=== PATIENT | female | born 1940 | race Caucasian/White ===

== ENCOUNTER 2019-03-14 08:15 | Emergency (ER) | payer OTHER ==
--- NOTE | 2019-03-14 08:43 | EDPHYS ---
Physician Documentation [facility] Name: Salome Keating Age: 78 yrs Sex: Female : 1940 Arrival Date: 03/14/2019 Time: 08:19 Bed 19 Private MD: Jadon Gilbert C ED Physician Av Stanley HPI: 03/14 10:30 This 78 yrs old Female presents to ER via Ambulatory with complaints of Rash. kdr 10:30 The patient's rash thought to be caused by Dermatitis Apparent fungal infection to the kdr intra panus area on her abdomen. The rash is located on the right lower quadrant and left lower quadrant. The rash can be described as erythematous, macular, moist. Onset: The symptoms/episode began/occurred gradually, 2 week(s) ago. Associated signs and symptoms: Pertinent positives: None. burning sensation, Pain Pertinent negatives:. Severity of symptoms: At their worst the symptoms were mild in the emergency department the symptoms are unchanged. Onset: The symptoms/episode began/occurred gradually, 2 week(s) ago. Treatment given at home: Benadryl. Treatment given at home: OTC lotion/cream. The symptoms do not radiate. Associated signs and symptoms: none. The symptoms are described as burning, vague. Modifying factors: The symptoms are alleviated by nothing, the symptoms are aggravated by movement, touching the area. Severity of pain: At its worst the pain was mild moderate just prior to arrival, in the emergency department the pain. The patient has not experienced similar symptoms in the past. The patient has been recently seen by a physician: the patient's primary care provider, Dr. Gilbert. The patient had been given Nystatin by Dr. Gilbert but continues to get worse. Historical: - Allergies: 08:34 No Known Allergies; sv - PMHx: 08:34 Atrial Fib; Hypertension; CHF; sv - PSHx: 08:34 Appendectomy; Cholecystectomy; Hysterectomy; Knee surgery; thyroid; pancreas partly sv removed; - Immunization history:: Adult Immunizations up to date, Flu vaccine is up to date. - Social history:: Smoking status: Patient/guardian denies using tobacco, Patient/guardian denies using alcohol. - Ebola Screening: : No symptoms or risks identified at this time. ROS: 10:30 Constitutional: Negative for fever, chills, and weight loss. kdr 10:30 Skin: Positive for discoloration, erythema. 10:30 Neuro: Positive for Negative for altered mental status, dizziness, gait disturbance, headache, hearing loss. Exam: 10:30 Skin: rash a moderate rash is noted, rash can be described as erythematous, excoriated, kdr macular, Fungal rash. 10:39 Constitutional: This is a well developed, well nourished patient who is awake, alert, kdr and in no acute distress. Vital Signs: 08:25 BP 120 / 81; Pulse 78; Resp 20; Temp 98.6; Pulse Ox 97% ; Weight 86.18 kg; Height 5 ft. sv 7 in. (170.18 cm); Pain 10/10; 08:25 Body Mass Index 29.76 (86.18 kg, 170.18 cm) sv MDM: 08:43 Patient medically screened. kdr 10:30 Data reviewed: vital signs, nurses notes. Counseling: I had a detailed discussion with kdr the patient and/or guardian regarding: the historical points, exam findings, and any diagnostic results supporting the discharge/admit diagnosis, the need for outpatient follow up. Administered Medications: No medications were administered Disposition: 03/14/19 08:43 Discharged to Home. Impression: Candidiasis. - Condition is Stable. - Discharge Instructions: Skin Yeast Infection. - Prescriptions for clotrimazole- betamethasone 1-0.05 % Topical lotion - apply 1 application by TOPICAL route 2 times per day for 14 days; 1 tube. - Medication Reconciliation Form, Thank You Letter form. - Follow up: Jadon Gilbert MD; When: 1 - 2 days; Reason: If symptoms return, Further diagnostic work-up, Recheck today's complaints, Continuance of care, Re-evaluation by your physician. - Problem is an ongoing problem. - Symptoms are unchanged. - Notes: Keep the area clean and dry. Signatures: Adelaida Patel RN RN Av Stanley MD MD kdr Corrections: (The following items were deleted from the chart) 09:14 08:43 03/14/2019 08:43 Discharged to Home. Impression: Candidiasis. Condition is sv Stable. Forms are Medication Reconciliation Form, Thank You Letter, Antibiotic Education, Prescription Opioid Use. Follow up: Jadon Gilbert; When: 1 - 2 days; Reason: If symptoms return, Further diagnostic work-up, Recheck today's complaints, Continuance of care, Re-evaluation by your physician. Problem is an ongoing problem. Symptoms are unchanged. kdr
--- NOTE | 2019-03-14 08:43 | ER ---
Nurse's Notes [facility] Name: Salome Keating Age: 78 yrs Sex: Female : 1940 Arrival Date: 03/14/2019 Time: 08:19 Bed 19 Private MD: Jadon Gilbert C Diagnosis: Candidiasis Presentation: 03/14 08:25 Presenting complaint: Patient states: rash to the lower abd fold x 2 weeks, has seen Dr crispin Gilbert and placed on Nystatin but has had no relief. Transition of care: patient was not received from another setting of care. Onset of symptoms was February 2019. Risk Assessment: Do you want to hurt yourself or someone else? Patient reports no desire to harm self or others. Initial Sepsis Screen: Does the patient meet any 2 criteria? No. Patient's initial sepsis screen is negative. Does the patient have a suspected source of infection? No. Patient's initial sepsis screen is negative. Care prior to arrival: Medication(s) given: Nystatin. 08:25 Method Of Arrival: Ambulatory sv 08:25 Acuity: JOLENE 4 sv Triage Assessment: 08:25 General: Appears in no apparent distress. uncomfortable, well developed, Behavior is sv cooperative, appropriate for age. Pain: Complains of pain in suprapubic area Pain currently is 10 out of 10 on a pain scale. Quality of pain is described as burning, itching Pain began 2 weeks ago Is continuous. Neuro: Level of Consciousness is awake, alert, obeys commands, Oriented to person, place, time, situation, Moves all extremities. Full function. Respiratory: Respiratory effort is even, unlabored, Respiratory pattern is regular, symmetrical. Derm: Skin is pink, warm \T\ dry. Rash noted that is itchy, red, on suprapubic area. Musculoskeletal: Range of motion: intact in all extremities. Historical: - Allergies: 08:34 No Known Allergies; sv - PMHx: 08:34 Atrial Fib; Hypertension; CHF; sv - PSHx: 08:34 Appendectomy; Cholecystectomy; Hysterectomy; Knee surgery; thyroid; pancreas partly sv removed; - Immunization history:: Adult Immunizations up to date, Flu vaccine is up to date. - Social history:: Smoking status: Patient/guardian denies using tobacco, Patient/guardian denies using alcohol. - Ebola Screening: : No symptoms or risks identified at this time. Screenin:37 Abuse screen: Denies threats or abuse. Denies injuries from another. Nutritional sv screening: No deficits noted. Tuberculosis screening: No symptoms or risk factors identified. Fall Risk None identified. Assessment: 08:37 Reassessment: Patient appears in no apparent distress at this time. No changes from sv previously documented assessment. 09:00 Reassessment: Patient appears in no apparent distress at this time. No changes from sv previously documented assessment. Patient and/or family updated on plan of care and expected duration. Pain level reassessed. Patient is alert, oriented x 3, equal unlabored respirations, skin warm/dry/pink. Vital Signs: 08:25 BP 120 / 81; Pulse 78; Resp 20; Temp 98.6; Pulse Ox 97% ; Weight 86.18 kg; Height 5 ft. sv 7 in. (170.18 cm); Pain 10/10; 08:25 Body Mass Index 29.76 (86.18 kg, 170.18 cm) sv ED Course: 08:19 Patient arrived in ED. mr 08:19 Jadon Gilbert MD is Private Physician. mr 08:29 Av Stanley MD is Attending Physician. kdr 08:31 Adelaida Patel RN is Primary Nurse. sv 08:33 Triage completed. sv 08:35 Arm band placed on. sv 08:37 Patient has correct armband on for positive identification. Bed in low position. Call sv light in reach. Door closed. Head of bed elevated. 08:38 ED physician to see patient. sv 08:41 Jadon Gilbert MD is Referral Physician. kdr 09:00 No provider procedures requiring assistance completed. Patient did not have IV access sv during this emergency room visit. Administered Medications: No medications were administered Outcome: 08:43 Discharge ordered by . kdr 09:00 Discharged to home ambulatory. sv 09:00 Condition: stable 09:00 Discharge instructions given to patient, Instructed on discharge instructions, follow up and referral plans. medication usage, wound care, Demonstrated understanding of instructions, follow-up care, medications, wound care, Prescriptions given X 1. 09:00 Patient left the ED. sv Signatures: Adelaida Patel RN RN sv Av Stanley MD MD [facility] Danyell Baumann mr Corrections: (The following items were deleted from the chart) 09:14 09:14 Patient left the ED. sv sv
== END 2019-03-14 09:14 | disposition home or self-care (01) ==
LOC: ER 08:15
DX: B37.9 Candidiasis, unspecified (principal); I10 Essential (primary) hypertension
CPT/HCPCS: 99282

== ENCOUNTER 2019-04-25 10:01 | Emergency (ER) | payer OTHER ==
[2019-04-25 10:55] LABS: Absolute Lymphocytes (CBC) 1.8 K/uL (0.7-4.9); Basophils % 0.8 % (0-1.3); Eosinophils % 2.8 % (0-4.4); Hematocrit 36.8 % (36.0-45.0); Lymphocytes % 21.2 % (15.3-44.8); MPV 8.7 fL (7.6-11.3); Monocytes % 7.8 % (3.3-12.3)
[2019-04-25 11:15] LABS: Potassium 3.6 mmol/L (3.5-5.1)
--- NOTE | 2019-04-25 11:19 | ER ---
Nurse's Notes [facility] Name: Salome Keating Age: 78 yrs Sex: Female : 1940 Arrival Date: 04/25/2019 Time: 10:02 Bed 14 Private MD: Jadon Gilbert C Diagnosis: Edema, unspecified Presentation: 04/25 10:11 Presenting complaint: Patient states: I had swelling in my feet that started yesterday la1 and was very bad last night. I have arthritis but also have to take a fluid pill and have a abnormal heart rhythm . Transition of care: patient was not received from another setting of care. Onset of symptoms was April 25, 2019. Risk Assessment: Do you want to hurt yourself or someone else? Patient reports no desire to harm self or others. Initial Sepsis Screen: Does the patient meet any 2 criteria? No. Patient's initial sepsis screen is negative. Does the patient have a suspected source of infection? No. Patient's initial sepsis screen is negative. Care prior to arrival: None. 10:11 Method Of Arrival: Ambulatory la1 10:11 Acuity: JOLENE 3 la1 Triage Assessment: 11:35 General: Appears in no apparent distress. Behavior is calm, cooperative. Pain: ae4 Complains of pain in right foot and left foot. Historical: - Allergies: 10:10 No Known Allergies; la1 - PMHx: 10:10 Atrial Fib; CHF; Hypertension; Arthritis; la1 - Immunization history:: Adult Immunizations up to date. - Social history:: Smoking status: Patient/guardian denies using tobacco. - Ebola Screening: : No symptoms or risks identified at this time. - Family history:: not pertinent. - Hospitalizations: : No recent hospitalization is reported. Screenin:33 Abuse screen: Denies threats or abuse. Nutritional screening: No deficits noted. ae4 Tuberculosis screening: No symptoms or risk factors identified. Fall Risk No fall in past 12 months (0 pts). Secondary diagnosis (15 points) Moderate swelling to MARYBETH feet, ankles.. No IV (0 pts). Ambulatory Aid- None/Bed Rest/Nurse Assist (0 pts). Gait- Normal/Bed Rest/Wheelchair (0 pts) Mental Status- Oriented to own ability (0 pts). Vital Signs: 10:12 BP 156 / 67; Pulse 88; Resp 16; Temp 97.8; Pulse Ox 98% on R/A; Weight 83.46 kg; Height la1 5 ft. 7 in. (170.18 cm); 11:36 BP 129 / 65; Pulse 85; Resp 18; Pulse Ox 98% on R/A; ae4 10:12 Body Mass Index 28.82 (83.46 kg, 170.18 cm) la1 ED Course: 10:02 Patient arrived in ED. as 10:02 Jadon Gilbert MD is Private Physician. as 10:10 Arm band placed on right wrist. la1 10:12 Triage completed. la1 10:15 Bed in low position. Call light in reach. Side rails up X 1. Adult w/ patient. Pulse ox ae4 on. NIBP on. 10:19 Chaz Perez MD is Attending Physician. rn 10:30 Jung Shay, RN is Primary Nurse. ae4 10:49 Basic Metabolic Panel Sent. ae4 10:49 CBC with Diff Sent. ae4 10:49 Inserted 22 Gauge straight stick blood draw sent to lab. ae4 11:18 Jadon Gilbert MD is Referral Physician. rn 11:34 No provider procedures requiring assistance completed. Patient did not have IV access ae4 during this emergency room visit. Administered Medications: No medications were administered Outcome: 11:18 Discharge ordered by . rn 11:35 Discharged to home ambulatory, with friend. ae4 11:35 Condition: stable 11:35 Discharge instructions given to patient, Instructed on discharge instructions, follow up and referral plans. Demonstrated understanding of instructions. 11:36 Patient left the ED. ae4 Signatures: Flores Villar Roman, MD MD rn Attema, Lee, RN RN la1 Jung Shay, ARTUR RN ae4
--- NOTE | 2019-04-25 11:19 | EDPHYS ---
Physician Documentation [facility] Name: Salome Keating Age: 78 yrs Sex: Female : 1940 Arrival Date: 04/25/2019 Time: 10:02 Bed 14 Private MD: Jdaon Gilbert C ED Physician Chza Perez HPI: 04/25 10:34 This 78 yrs old Female presents to ER via Ambulatory with complaints of Feet rn Swelling, Foot Pain. 10:34 The patient presents with pain. The complaints affect the left foot, right foot. Onset: rn The symptoms/episode began/occurred at an unknown time. Modifying factors: The symptoms are alleviated by nothing, the symptoms are aggravated by nothing. Severity of symptoms: At their worst the symptoms were mild, in the emergency department the symptoms are unchanged. The patient has not experienced similar symptoms in the past. The patient has not recently seen a physician. Reports 1-2 days of foot swelling and pain, + chronic arthritis, + afib and takes diuretics, reports still present with leg elevation, No trauma, no fever, no rash, no pain elsewhere. No leg swelling proximally, only feet. . Historical: - Allergies: 10:10 No Known Allergies; la1 - PMHx: 10:10 Atrial Fib; CHF; Hypertension; Arthritis; la1 - Immunization history:: Adult Immunizations up to date. - Social history:: Smoking status: Patient/guardian denies using tobacco. - Ebola Screening: : No symptoms or risks identified at this time. - Family history:: not pertinent. - Hospitalizations: : No recent hospitalization is reported. ROS: 10:55 Constitutional: Negative for fever, chills, and weight loss, Eyes: Negative for injury, rn pain, redness, and discharge, Cardiovascular: Negative for chest pain, palpitations Respiratory: Negative for shortness of breath, cough, wheezing, and pleuritic chest pain, Abdomen/GI: Negative for abdominal pain, nausea, vomiting, diarrhea, and constipation, MS/Extremity: Negative for injury and deformity, Skin: Negative for injury, rash, and discoloration, Neuro: Negative for headache, weakness, numbness, tingling, and seizure. Exam: 10:55 Constitutional: This is a well developed, well nourished patient who is awake, alert, rn and in no acute distress. Head/Face: Normocephalic, atraumatic. ENT: MMM Respiratory: No increased work of breathing, no retractions or nasal flaring. Abdomen/GI: soft, non-tender Skin: Warm, dry with normal turgor. Normal color with no rashes, no lesions, and no evidence of cellulitis. MS/ Extremity: Pulses equal, no cyanosis. Neurovascular intact. Full, normal range of motion. Equal circumference. 1+ pitting edema bilateral feet. Neuro: Awake and alert, GCS 15, oriented to person, place, time, and situation. Cranial nerves II-XII grossly intact. Motor strength 5/5 in all extremities. Sensory grossly intact. Cerebellar exam normal. Vital Signs: 10:12 BP 156 / 67; Pulse 88; Resp 16; Temp 97.8; Pulse Ox 98% on R/A; Weight 83.46 kg; Height la1 5 ft. 7 in. (170.18 cm); 11:36 BP 129 / 65; Pulse 85; Resp 18; Pulse Ox 98% on R/A; ae4 10:12 Body Mass Index 28.82 (83.46 kg, 170.18 cm) la1 MDM: 10:19 Patient medically screened. rn 11:17 Differential diagnosis: arthritis, edema. 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 Counseling: I had a detailed discussion with the patient and/or guardian regarding: the historical points, exam findings, and any diagnostic results supporting the discharge/admit diagnosis, lab results, the need for outpatient follow up, to return to the emergency department if symptoms worsen or persist or if there are any questions or concerns that arise at home. Special discussion: I discussed with the patient/guardian in detail that at this point there is no indication for admission to the hospital. It is understood, however, that if the symptoms persist or worsen the patient needs to return immediately for re-evaluation. ED course: Recommend pcp f/u and doubling up her diuretic for 2-3 days. Kidney function normal, no sign of infection, no signs of vascular compromise. . 04/25 10:28 Order name: CBC with Diff; Complete Time: 11:17 rn 04/25 10:28 Order name: Basic Metabolic Panel; Complete Time: : rn Administered Medications: No medications were administered Disposition: 04/25/19 11:18 Discharged to Home. Impression: Edema, unspecified. - Condition is Stable. - Discharge Instructions: Peripheral Edema. - Medication Reconciliation Form, Thank You Letter, Antibiotic Education, Prescription Opioid Use form. - Follow up: Jadon Gilbert MD; When: 1 week; Reason: Recheck today's complaints, Re-evaluation by your physician. - Problem is new. - Symptoms have improved. Signatures: Dispatcher [employer] EDMO Chaz Perez MD MD rn Attema, Lee, RN RN la1 Jung Shay RN RN ae4 Corrections: (The following items were deleted from the chart) 10:29 10:28 IV Saline Lock ordered. rn rn 11:36 11:18 04/25/2019 11:18 Discharged to Home. Impression: Edema, unspecified. Condition is ae4 Stable. Forms are Medication Reconciliation Form, Thank You Letter, Antibiotic Education, Prescription Opioid Use. Follow up: Jadon Gilbert; When: 1 week; Reason: Recheck today's complaints, Re-evaluation by your physician. Problem is new. Symptoms have improved. rn
== END 2019-04-25 11:36 | disposition home or self-care (01) ==
LOC: ER 10:01
DX: R60.9 Edema, unspecified (principal)
CPT/HCPCS: 36415; 80048; 85025; 99283

== ENCOUNTER 2022-04-24 11:51 | Emergency (ER) | payer OTHER ==
--- NOTE | 2022-04-24 13:10 | RAD REPORT ---
EXAM DESCRIPTION: RAD - Chest Single View - 04/24/2022 12:28 pm CLINICAL HISTORY: CHEST PAIN COMPARISON: Two view chest 08/25/2015 TECHNIQUE: AP portable chest image was obtained 04/24/2022 12:28 pm . FINDINGS: No focal lung parenchymal process identified. Mildly prominent chronic interstitial lung p attern matches comparison. Heart and vasculature are normal. No measurable pleural effusion and no pn eumothorax. No acute bony abnormality seen. No acute aortic findings suspected. IMPRESSION: No acute cardiopulmonary process.
[2022-04-24 14:37] LABS: Absolute Lymphocytes (CBC) 1.6 K/uL (0.7-4.9); Hematocrit 36.1 % (36.0-45.0); Lymphocytes % 31.9 % (15.3-44.8); MCV 89.9 fL (80-100); MPV 8.3 fL (7.6-11.3); RBC Red Blood Cell Count 4.02 M/uL (3.86-4.86)
[2022-04-24 14:42] LABS: Urine Blood Negative (Negative); Urine Glucose Negative (Negative); Urine Protein Negative (Negative); Urine Specific Gravity 1.015 (1.005-1.030); Urine pH 5.5 (5.0-7.0)
[2022-04-24 14:49] LABS: Troponin High Sensitivity 5.9 pg/mL (<58.9)
[2022-04-24 14:57] LABS: Magnesium 2.5 mg/dL (1.8-2.4)
[2022-04-24 15:13] LABS: Urine Bacteria <20 /HPF (<20); Urine RBC <5 /HPF (NONE SEEN)
--- NOTE | 2022-04-24 15:28 | EDPHYS ---
Physician Documentation [facility] Name: Salome Keating Age: 81 yrs Sex: Female : 1940 Arrival Date: 04/24/2022 Time: 11:54 Bed 6 Private MD: Jadon Gilbert C ED Physician Chaz Perez HPI: 04/24 13:27 This 81 yrs old Female presents to ER via Ambulatory with complaints of Chest Pain. cp 13:27 The patient or guardian reports chest pain that is located primarily in the anterior cp chest wall, left. 13:27 Onset: yesterday. The pain radiates to the left shoulder, left jaw, the left scapula. cp Associated signs and symptoms: Pertinent negatives: abdominal pain, cough, diaphoresis, lower extremity pain, lower extremity swelling, palpitations, shortness of breath, syncope, vomiting. The chest pain is described as aching. Duration: The patient or guardian reports multiple episodes, that are intermittent. Modifying factors: the symptoms are aggravated by nothing. Severity of pain: in the emergency department the pain has improved moderately. . Historical: - Allergies: 12:10 No Known Allergies; ap3 - PMHx: 12:10 Arthritis; Atrial Fib; CHF; Hypertension; ap3 - Immunization history:: Client reports receiving the 2nd dose of the Covid vaccine. - Social history:: Smoking status: Patient denies any tobacco usage or history of. ROS: 13:30 Constitutional: Negative for body aches, chills, fever, poor PO intake. cp 13:30 Cardiovascular: Positive for chest pain, edema, Negative for palpitations. cp 13:30 Respiratory: Negative for cough, shortness of breath, wheezing. 13:30 Eyes: Negative for injury, pain, redness, and discharge. cp 13:30 Neck: Negative for stiffness. 13:30 Abdomen/GI: Negative for abdominal pain, nausea, vomiting, and diarrhea. 13:30 Back: Positive for radiated pain. 13:30 Skin: Negative for cellulitis, rash. 13:30 Neuro: Negative for altered mental status, dizziness, headache, weakness. 13:30 All other systems are negative. Exam: 12:25 ECG was reviewed by the Attending Physician. cp 13:35 Constitutional: The patient appears in no acute distress, alert, awake, comfortable, cp non-diaphoretic, non-toxic, well developed, well nourished. 13:35 Head/Face: Normocephalic, atraumatic. cp 13:35 Eyes: Periorbital structures: appear normal, Conjunctiva: normal, no exudate, no injection, Sclera: no appreciated abnormality, Lids and lashes: appear normal, bilaterally. 13:35 ENT: External ear(s): are unremarkable, Nose: is normal, Mouth: Lips: moist, Oral mucosa: pink and intact, moist, Posterior pharynx: is normal, airway is patent, no erythema, no exudate. 13:35 Neck: ROM/movement: is normal, is supple, without pain, no range of motions limitations. 13:35 Chest/axilla: Inspection: normal. 13:35 Cardiovascular: Rate: bradycardic, Rhythm: regular, Edema: ankle edema, that is mild, JVD: is not appreciated. 13:35 Respiratory: the patient does not display signs of respiratory distress, Respirations: normal, no use of accessory muscles, no retractions, labored breathing, is not present, Breath sounds: are clear throughout, no decreased breath sounds, no stridor, no wheezing. 13:35 Abdomen/GI: Inspection: abdomen appears normal, Palpation: abdomen is soft and non-tender, in all quadrants. 13:35 Back: pain, is absent, ROM is normal. 13:35 Neuro: Orientation: to person, place \T\ time. Mentation: is normal, Motor: moves all fours, general weakness with no focal deficits, Sensation: is normal, Gait: is steady. Vital Signs: 12:07 BP 129 / 61; Pulse 60; Temp 97.7; Pulse Ox 99% ; Weight 74.84 kg; Height 5 ft. 7 in. ap3 (170.18 cm); 14:42 BP 166 / 66; Pulse 48; Pulse Ox 100% on R/A; Pain 0/10; tp1 15:38 BP 148 / 50; Pulse 67; Resp 16; Pulse Ox 100% on R/A; Pain 0/10; tp1 12:07 Body Mass Index 25.84 (74.84 kg, 170.18 cm) ap3 MDM: 12:12 Patient medically screened. [facility] 13:00 Differential diagnosis: acute myocardial infarction, acute pericarditis, pericarditis, cp pneumonia, pneumothorax, pulmonary embolus, stable angina, thoracic aortic disection, unstable angina. 15:25 Data reviewed: vital signs, nurses notes, lab test result(s), EKG, radiologic studies, cp plain films. Test interpretation: by ED physician or midlevel provider: ECG, plain radiologic studies. 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 Refusal of service: The patient/guardian displays adequate decision making capability and despite a detailed discussion of alternatives, benefits, risks, and consequences refuses: Admission to the hospital for further work-up and treatment. 04/24 12:12 Order name: Basic Metabolic Panel; Complete Time: 14:56 [facility] 04/24 14:56 Interpretation: Normal except: GLUC 118; BUN 44; CRE 2.01; GFR 24. 04/24 12:12 Order name: CBC with Diff; Complete Time: 14:56 [facility] 04/24 14:59 Interpretation: Normal except: HGB 11.9; MCV 89.9; EOSINOPHIL % 7.0; BASO% 1.4. 04/24 12:12 Order name: Troponin HS; Complete Time: 14:56 [facility] 04/24 13:27 Order name: BNP; Complete Time: 15:05 04/24 15:05 Interpretation: Abnormal: NT PRO-BNP 897. 04/24 13:27 Order name: Magnesium; Complete Time: 15:05 04/24 15:05 Interpretation: MG 2.5; Reviewed. 04/24 13:27 Order name: Urine Microscopic Only; Complete Time: 15:16 04/24 15:16 Interpretation: Normal except: SQEPI 5-10. 04/24 12:12 Order name: XRAY Chest (1 view); Complete Time: 14:56 [facility] 04/24 15:06 Interpretation: Report review. 04/24 12:12 Order name: EKG; Complete Time: 12:13 [facility] 04/24 12:12 Order name: Cardiac monitoring; Complete Time: 14:42 [facility] 04/24 12:12 Order name: EKG - Nurse/Tech; Complete Time: 14:28 [facility] 04/24 12:12 Order name: IV Saline Lock; Complete Time: 14:25 [facility] 04/24 12:12 Order name: Labs collected and sent; Complete Time: 14:25 [facility] 04/24 12:12 Order name: O2 Per Protocol; Complete Time: 14:42 [facility] 04/24 14:43 Order name: Urine Dipstick-Ancillary; Complete Time: 14:56 [facility] 04/24 12:12 Order name: O2 Sat Monitoring; Complete Time: 14:25 [facility] 04/24 13:27 Order name: Urine Dipstick-Ancillary (obtain specimen); Complete Time: 14:42 cp EC:25 Rate is 50 beats/min. Rhythm is regular. HI interval is normal. QRS interval is normal. cp QT interval is normal. T waves are Inverted in lead aVR. Interpreted by me. Reviewed by me. Administered Medications: No medications were administered Disposition: 04/25 07:31 Co-signature as Attending Physician, Chaz Perez MD. rn Disposition Summary: 04/24/22 15:27 Discharge Ordered Location: Home cp Problem: new cp Symptoms: are unchanged cp Condition: Stable cp Diagnosis - Chest pain, unspecified cp - Other acute kidney failure cp Followup: cp - With: Jadon Gilbert MD - When: 1 - 2 days - Reason: Recheck today's complaints Followup: cp - With: Luis Díaz MD - When: 1 - 2 days - Reason: chest pain Discharge Instructions: - Discharge Summary Sheet cp - Nonspecific Chest Pain, Adult cp - Acute Kidney Injury, Adult cp - Aspirin and Your Heart cp Forms: - Medication Reconciliation Form cp - Thank You Letter cp - Antibiotic Education cp - Prescription Opioid Use cp Signatures: Dispatcher [employer] EDBlack Prabhakar PA PA jmm Nieto, Roman, MD MD rn Page, Corey, PA PA cp Prokisch, Amanda, ARTUR RN ap3
--- NOTE | 2022-04-24 15:28 | ER ---
Nurse's Notes [facility] Name: Salome Keating Age: 81 yrs Sex: Female : 1940 Arrival Date: 04/24/2022 Time: 11:54 Bed 6 Private MD: Jadon Gilbert C Diagnosis: Chest pain, unspecified;Other acute kidney failure Presentation: 04/24 12:07 Chief complaint: Patient states: she has been having chest pain off and on since last ap3 night. patient states the pain is also in her neck and shoulder area as well. Coronavirus screen: At this time, the client does not indicate any symptoms associated with coronavirus-19. Ebola Screen: No symptoms or risks identified at this time. Initial Sepsis Screen: Does the patient meet any 2 criteria? No. Patient's initial sepsis screen is negative. Does the patient have a suspected source of infection? No. Patient's initial sepsis screen is negative. Risk Assessment: Do you want to hurt yourself or someone else? Patient reports no desire to harm self or others. Onset of symptoms was April 23, 2022. 12:07 Method Of Arrival: Ambulatory ap3 12:12 Acuity: JOLENE 3 ap3 Triage Assessment: 12:11 General: Appears uncomfortable, Behavior is calm, cooperative. Pain: Complains of pain ap3 in chest Pain radiates to neck and shoulder Pain began gradually, 1 day ago. Neuro: Level of Consciousness is awake, alert, obeys commands, Oriented to person, place, time, situation, Appropriate for age Gait is steady, Speech is normal. Cardiovascular: Reports chest pain. Respiratory: Airway is patent Respiratory effort is even, unlabored, Respiratory pattern is regular, symmetrical. Historical: - Allergies: 12:10 No Known Allergies; ap3 - PMHx: 12:10 Arthritis; Atrial Fib; CHF; Hypertension; ap3 - Immunization history:: Client reports receiving the 2nd dose of the Covid vaccine. - Social history:: Smoking status: Patient denies any tobacco usage or history of. Screenin:12 Abuse screen: Denies threats or abuse. Nutritional screening: No deficits noted. ap3 Tuberculosis screening: No symptoms or risk factors identified. 14:40 Fall Risk IV access (20 points). Ambulatory Aid- Crutches/Cane/Walker (15 pts). Gait- tp1 Weak (10 pts.). Mental Status- Oriented to own ability (0 pts). Total Fontenot Fall Scale indicates High Risk Score (45 or more points). Fall prevention measures have been instituted. Side Rails Up X 2 Placed Close to Nursing Station Frequent Obs/Assessments Occuring Family Present and informed to notify staff if the need to leave the bedside As available patient and family educated on Fall Prevention Program and Strategies. Assessment: 14:04 General: Appears in no apparent distress. comfortable, Behavior is calm, cooperative. tp1 Pain: Complains of pain in anterior aspect of left upper chest and mid-sternal area Pain radiates to right trapezius and right scapular area Pain currently is 0 out of 10 on a pain scale. at worst was 5 out of 10 on a pain scale. Quality of pain is described as aching, Pain began 1 day ago. Neuro: Level of Consciousness is awake, alert, Oriented to person, place, time, situation. Cardiovascular: Heart tones S1 S2 present Patient's skin is warm and dry. Respiratory: Airway is patent Respiratory effort is even, unlabored, Respiratory pattern is regular. GI: No signs and/or symptoms were reported involving the gastrointestinal system. : No signs and/or symptoms were reported regarding the genitourinary system. EENT: No signs and/or symptoms were reported regarding the EENT system. Derm: Skin is intact, Skin is pink, warm \T\ dry. Musculoskeletal: Circulation, motion, and sensation intact. 15:30 Reassessment: Patient appears in no apparent distress at this time. No changes from tp1 previously documented assessment. Patient and/or family updated on plan of care and expected duration. Pain level reassessed. Patient is alert, oriented x 3, equal unlabored respirations, skin warm/dry/pink. Patient denies pain at this time. Neuro:. Cardiovascular: Patient's skin is warm and dry. Respiratory: Airway is patent Respiratory effort is even, unlabored, Respiratory pattern is regular. Vital Signs: 12:07 BP 129 / 61; Pulse 60; Temp 97.7; Pulse Ox 99% ; Weight 74.84 kg; Height 5 ft. 7 in. ap3 (170.18 cm); 14:42 BP 166 / 66; Pulse 48; Pulse Ox 100% on R/A; Pain 0/10; tp1 15:38 BP 148 / 50; Pulse 67; Resp 16; Pulse Ox 100% on R/A; Pain 0/10; tp1 12:07 Body Mass Index 25.84 (74.84 kg, 170.18 cm) ap3 ED Course: 11:54 Patient arrived in ED. mr 11:54 Jadon Gilbert MD is Private Physician. mr 12:12 Triage completed. ap3 12:12 Patient maintains SpO2 saturation greater than 95% on room air. ap3 12:12 Arm band placed on left wrist. ap3 12:22 EKG done, by ED staff. tp1 12:29 XRAY Chest (1 view) In Process Unspecified. EDMS 13:15 Maurisio Lantigua PA is PHCP. cp 13:15 Chaz Perez MD is Attending Physician. cp 14:13 Inserted saline lock: 20 gauge in right forearm, using aseptic technique. Blood tp1 collected. 14:30 Urine collected: clean catch specimen, clear. tp1 14:46 Patient has correct armband on for positive identification. Bed in low position. Call tp1 light in reach. Side rails up X2. Adult w/ patient. Client placed on continuous cardiac and pulse oximetry monitoring. NIBP monitoring applied. Warm blanket given. 15:26 Jadon Gilbert MD is Referral Physician. cp 15:26 Luis Díaz MD is Referral Physician. cp 15:52 No provider procedures requiring assistance completed. IV discontinued, intact, tp1 bleeding controlled, No redness/swelling at site. Pressure dressing applied. 15:53 Taylor Clark is Primary Nurse. tp1 Administered Medications: No medications were administered Medication: 15:54 VIS not applicable for this client. tp1 Outcome: 14:40 Discharged to home via wheelchair, with family. tp1 14:40 Condition: good 14:40 Discharge instructions given to patient, family, Instructed on discharge instructions, follow up and referral plans. Demonstrated understanding of instructions, follow-up care. 15:27 Discharge ordered by MD. cp 15:53 Patient left the ED. jl7 Signatures: Dispatcher [employer] EDMS Danyell Baumann Maurisio Lantigua PA PA cp Leal, Jahala, RN RN jl7 Aylin Lopez RN RN ap3 Taylor Clark tp1
[2022-04-24 16:00] VITALS: TEMP 97.7
[2022-04-24 16:01] VITALS: O2SAT 100
[2022-04-24 16:03] VITALS: BP 148/50
--- NOTE | 2022-04-25 08:23 | EKG ---
Test Date: 2022-04-24 Test Time: 12:22:14 Chief Clerk Shelter: ALP MEASUREMENT RESULTS: Intervals: Rate: 50 MS: 190 QRSD: 76 QT: 474 QTc: 432 [place]: P: 73 MS: 190 QRS: 11 T: 46 INTERPRETIVE STATEMENTS: Sinus bradycardia Low voltage QRS Borderline ECG Compared to ECG 06/06/2009 06:31:22 Sinus rhythm no longer present Electronically Signed On 04-25-22 08:18:35 CDT by Luis Díaz
== END 2022-04-24 15:53 | disposition home or self-care (01) ==
LOC: ER 11:51
DX: R07.9 Chest pain, unspecified (principal); N17.8 Other acute kidney failure; I10 Essential (primary) hypertension; I48.91 Unspecified atrial fibrillation; I50.9 Heart failure, unspecified
CPT/HCPCS: 36415; 71045; 80048; 81003; 81015; 83735; 83880; 84484; 85025; 93005

== ENCOUNTER 2022-08-09 10:45 | Emergency (ER) | payer OTHER ==
--- OUTSIDE RECORDS SUMMARY | 2022-08-09 10:49 | XMS REPORT | Continuity of Care Document ---
:1940 Author Organization [facility] t Address [facility] [address] [place] [address] Care Team Providers Name Role Phone Pcp, Patient Does Not Have A Primary Care Physician +[id number] Therapy, [facility]fusion Attending Clinician Unavailable Judd Cartagena MD Attending Clinician JUDD CARTAGENA Attending Clinician Unavailable Provider, [facility] Attending Clinician Unavailable Doctor Unassigned, [place] Attending Clinician Unavailable Only, Ang Db Test Attending Clinician Unavailable Marjorie Leal PA-C Attending Clinician Payers Payer Name Policy Type Policy Number Effective Date Expiration Date S ource Problems This patient has no known problems. Allergies, Adverse Reactions, Alerts Allergy Allergy Status Severity Reaction(s) Onset Inactive Treating Comm ents Source Name Type Date Date Clinician NO KNOWN Drug Active Univers ALLERGIE Class ity of S [facility] Social History Social Habit Start Date Stop Date Quantity Comments Source Exposure to Yes [facility] SARS-CoV-2 (event) Medica l Branch Sex Assigned At [birth year] [facility] 00:00:00 00:00:00 [facility] Smoking Status Start Date Stop Date Source Unknown if ever smoked [facility] Medications Ordered Filled Start Stop Current Ordering Indication Dosage Frequency Signature Comments Components Source Medication Medication Date Date Medication? Clinician (SIG) Name Name sotrovimab 2021- No [id number] 500mg 500 mg, IV Univers (XEVUDY) 11-01 Infusion, ity o f 500 mg in 23:30: 22:50 [facility] [place] NaCl 0.9% 00 :00 Administer Medi miguelito (NS) 50 mL over 30 Branch MINI-BAG Minutes, On Sun11/01/21 at 1730, For [address] able 24 hours refrigerat ed or 6 hours at room temperatur e including transporta tion and infusion time.
Vital Signs Vital Name Observation Time Observation Value Comments Source Systolic blood 2021-11-01 23:47:00 174 mm[Hg] Univer sity of pressure [facility] Diastolic blood 2021-11-01 23:47:00 57 mm[Hg] [facility] 2021-11-01 23:47:00 60 /min [facility] Body temperature 2021-11-01 23:47:00 37.11 [facility] rate 2021-11-01 23:47:00 20 /min [facility] Oxygen saturation in 2021-11-01 23:47:00 96 /min [facility] Arterial blood by [facility] Pulse oximetry Branch Body height 2021-11-01 22:19:00 170.2 cm [facility] Body weight 2021-11-01 22:19:00 74.844 kg [facility] BMI 2021-11-01 22:19:00 25.84 kg/m2 [facility] Procedures Procedure Date / Time Performing Clinician Source Performed IMMTRAC2 CONSENT 2021-11-01 06:01:00 Doctor Unassigned, [facility] [place] [facility] LAB ONLY COVID 2021-10-30 18:42:00 Mel Marjorie [place] o [facility] COVID-19 (MOLECULAR 2021-10-30 18:42:00 Marjorie Leal [facility] TESTING [facility] NUCLEIC ACID AMPLIFICATION) Encounters Start End Encounter Admission Attending Care Care Encounter Source Date/Time Date/Time Type Type Clinicians Facility Department ID 2021-11-01 2021-11-01 Nurse Therapy, [facility] Infusion [facility] [id number] [facility] 16:00:00 17:00:00 Visit Judd Cartagena [id number] [id number] [id number] [facility] [address] Branch 2021-11-01 2021-11-01 Outpatient R CARTAGENA [facility] [id number] Univers 16:00:00 16:00:00 JUDD [facility] 2021-11-01 2021-11-01 Outpatient R CARTAGENA [facility] [id number] Univers 16:00:00 16:00:00 JUDD [facility] 2021-11-01 2021-11-01 Telephone Provider, [facility] [id number] Univers 00:00:00 00:00:00 Ang Urgent HEALTH [id number] ity of Care [place] [id number] [place] as ANNETTE?BLEA [id number] [address] MEDICAL OFFICE BUILDING 2021-11-01 2021-11-01 Orders Doctor JONG [id number] Univers 00:00:00 00:00:00 Only Unassigned, MINI [id number] ity of [place] [facility] [id number] [place] as [id number] [address] 2021-10-30 2021-10-30 Laboratory Only, Ang Db Test [facility] 1.2.8 40.114 [id number] Univers 12:45:00 13:29:20 Only Dominique Lealcy HEALTH [id number] ity of [place] [id number] [place] as ANNETTE?BLEA [id number] [address] MEDICAL OFFICE BUILDING Results This patient has no known results.
--- NOTE | 2022-08-09 13:01 | RAD REPORT ---
EXAM DESCRIPTION: RAD - Foot Left 3 View - 08/09/2022 12:43 pm CLINICAL HISTORY: PAINafter a fall COMPARISON: No comparisons FINDINGS: No fracture, dislocation or periosteal reaction. No acute or destructive bony process. IP joint space narrowing present with joint space narrowing at the first MTP joint as well. No erosiv e destructive bony process. Small plantar spur is present. No air or foreign body in the soft tissues. Arterial calcifications present. IMPRESSION: Left foot degenerative change as detailed. No fracture or other acute finding.
--- NOTE | 2022-08-09 13:02 | RAD REPORT ---
EXAM DESCRIPTION: RAD - Knee Left 3 View - 08/09/2022 12:43 pm CLINICAL HISTORY: PAIN COMPARISON: Knee Left 2 View dated 06/23/2019 FINDINGS: No fracture, dislocation or periosteal reaction.No joint effusion seen. Medial compartment narrowing present with small marginal spurs along the tibial plateau. There is spurring along the ti bial spine and intercondylar notch. Patella marginal spurs are present. Patella femoral joint space i s narrowed slightly. No soft tissue abnormality. IMPRESSION: Knee joint degenerative change as detailed. No acute bone or joint finding. Clinical concerns for internal derangement or occult bony injury could be further assessed with MR im aging.
--- NOTE | 2022-08-09 13:25 | ER ---
Nurse's Notes [facility] Name: Salome Keating Age: 82 yrs Sex: Female : 1940 Arrival Date: 08/09/2022 Time: 10:52 Bed 15 Private MD: Jadon Gilbert C Diagnosis: Fall on same level from slipping, tripping and stumbling without subsequent striking against object;Pain in left knee;Pain in left foot Presentation: 08/09 10:59 Chief complaint: Patient states: Fell Sunday night and reporting pain to left foot and jl7 left knee, does not know what made her fall. Coronavirus screen: At this time, the client does not indicate any symptoms associated with coronavirus-19. Ebola Screen: No symptoms or risks identified at this time. Initial Sepsis Screen: Does the patient meet any 2 criteria? No. Patient's initial sepsis screen is negative. Does the patient have a suspected source of infection? No. Patient's initial sepsis screen is negative. Risk Assessment: Do you want to hurt yourself or someone else? Patient reports no desire to harm self or others. Onset of symptoms was August 07, 2022. 10:59 Method Of Arrival: Ambulatory jl7 10:59 Acuity: JOLENE 3 jl7 Triage Assessment: 11:03 General: Appears in no apparent distress. uncomfortable, Behavior is calm, cooperative, jl7 appropriate for age. Pain: Complains of pain in left leg Pain currently is 6 out of 10 on a pain scale. Historical: - Allergies: 11:03 Sulfa (Sulfonamide Antibiotics); jl7 - PMHx: 11:03 Arthritis; Atrial Fib; CHF; Hypertension; jl7 - Immunization history:: Client reports receiving the 2nd dose of the Covid vaccine. - Social history:: Smoking status: Patient denies any tobacco usage or history of. Screenin:07 Abuse screen: Denies threats or abuse. Nutritional screening: No deficits noted. ap3 Tuberculosis screening: No symptoms or risk factors identified. Fall Risk Fall in past 12 months (25 points). Secondary diagnosis (15 points) impaired mobility, No IV (0 pts). Ambulatory Aid- None/Bed Rest/Nurse Assist (0 pts). Gait- Impaired (20 pts.). Mental Status- Oriented to own ability (0 pts). Total Fontenot Fall Scale indicates High Risk Score (45 or more points). Fall prevention measures have been instituted. Side Rails Up X 2 Placed Close to Nursing Station Frequent Obs/Assessments Occuring Family Present and informed to notify staff if the need to leave the bedside As available patient and family educated on Fall Prevention Program and Strategies. Assessment: 12:07 General: Appears in no apparent distress. Behavior is calm, cooperative. Pain: ap3 Complains of pain in left leg Pain began suddenly, 2-3 days ago. Neuro: Level of Consciousness is awake, alert, obeys commands, Oriented to person, place, time. Cardiovascular: Patient's skin is warm and dry. Respiratory: Airway is patent Respiratory effort is even, unlabored, Respiratory pattern is regular, symmetrical. Vital Signs: 10:59 BP 112 / 57; Pulse 86; Resp 15; Temp 98.2; Pulse Ox 100% ; Weight 72.57 kg; Height 5 jl7 ft. 7 in. (170.18 cm); Pain 6/10; 10:59 Body Mass Index 25.06 (72.57 kg, 170.18 cm) jl7 ED Course: 10:52 Patient arrived in ED. mr 10:52 Jadon Gilbert MD is Private Physician. mr 10:55 [facility]C [facility]. kb 10:55 Cornell Knight DO is Attending Physician. kb 11:03 Triage completed. jl7 11:03 Arm band placed on right wrist. jl7 11:18 Aylin Lopez, RN is Primary Nurse. ap3 12:08 Patient has correct armband on for positive identification. Bed in low position. Call ap3 light in reach. Side rails up X2. Adult w/ patient. Pulse ox on. NIBP on. Door closed. Noise minimized. 12:45 Foot Left 3 View XRAY In Process Unspecified. EDMS 12:45 Knee Left 3 View XRAY In Process Unspecified. EDMS 13:24 Jaodn Gilbert MD is Referral Physician. kb 13:36 No provider procedures requiring assistance completed. Patient did not have IV access ap3 during this emergency room visit. Administered Medications: No medications were administered Medication: 13:17 VIS not applicable for this client. ap3 Outcome: 13:24 Discharge ordered by . kb 13:36 Discharged to home via wheelchair, with friend. ap3 13:36 Condition: good 13:36 Discharge instructions given to patient, family, Instructed on discharge instructions, follow up and referral plans. Demonstrated understanding of instructions, follow-up care. 13:36 Patient left the ED. ap3 Signatures: Dispatcher [employer] EDAilyn Summers, DONNA YODER-Danyell Kahn mr SernaMercedes RN RN jl7 Aylin Lopez RN RN ap3
--- NOTE | 2022-08-09 13:26 | EDPHYS ---
Physician Documentation [facility] Name: Salome Keating Age: 82 yrs Sex: Female : 1940 Arrival Date: 08/09/2022 Time: 10:52 Bed 15 Private MD: Jadon Gilbert C ED Physician Cornell Knight HPI: 08/09 13:29 This 82 yrs old Female presents to ER via Ambulatory with complaints of Fall Injury. kb 13:29 Details of fall: The patient fell from an upright position, while walking. Onset: The kb symptoms/episode began/occurred 3 day(s) ago. Associated injuries: The patient sustained left foot and left knee, painful injury. Severity of symptoms: At their worst the symptoms were moderate, in the emergency department the symptoms are unchanged. The patient has not experienced similar symptoms in the past. The patient has not recently seen a physician. Pt reports she fell on Sunday when taking the trash out. Reports pain to left foot and knee. States she is able to walk with the walker. Historical: - Allergies: 11:03 Sulfa (Sulfonamide Antibiotics); jl7 - PMHx: 11:03 Arthritis; Atrial Fib; CHF; Hypertension; jl7 - Immunization history:: Client reports receiving the 2nd dose of the Covid vaccine. - Social history:: Smoking status: Patient denies any tobacco usage or history of. ROS: 13:27 Constitutional: Negative for fever, chills, and weight loss. kb 13:27 MS/extremity: Positive for pain, of the left foot and left knee. 13:27 All other systems are negative. Exam: 13:27 Constitutional: This is a well developed, well nourished patient who is awake, alert, kb and in no acute distress. Head/Face: Normocephalic, atraumatic. ENT: Moist Mucous membranes Cardiovascular: Regular rate and rhythm with a normal S1 and S2. No gallops, murmurs, or rubs. No pulse deficits. Respiratory: Respirations even and unlabored. No increased work of breathing. Talking in full sentences Abdomen/GI: Soft, non-tender. No distention Skin: Warm, dry with normal turgor. Normal color. Neuro: Awake and alert, GCS 15, oriented to person, place, time, and situation. Moves all extremities. Normal gait. Psych: Awake, alert, with orientation to person, place and time. Behavior, mood, and affect are within normal limits. 13:27 Musculoskeletal/extremity: Extremities: grossly normal except: noted in the left foot and left knee: pain, ROM: intact in all extremities, Circulation is intact in all extremities. Sensation intact. Weight bearing: can bear weight with assistance only, uses walker. Vital Signs: 10:59 BP 112 / 57; Pulse 86; Resp 15; Temp 98.2; Pulse Ox 100% ; Weight 72.57 kg; Height 5 jl7 ft. 7 in. (170.18 cm); Pain 6/10; 10:59 Body Mass Index 25.06 (72.57 kg, 170.18 cm) jl7 MDM: 11:02 Patient medically screened. kb 13:27 Data reviewed: vital signs, nurses notes. Data interpreted: Pulse oximetry: on room air kb is 100 %. Interpretation: normal. Counseling: I had a detailed discussion with the patient and/or guardian regarding: the historical points, exam findings, and any diagnostic results supporting the discharge/admit diagnosis, radiology results, the need for outpatient follow up, a family practitioner, to return to the emergency department if symptoms worsen or persist or if there are any questions or concerns that arise at home. 08/09 11:02 Order name: Foot Left 3 View XRAY; Complete Time: 13:05 kb 08/09 11:02 Order name: Knee Left 3 View XRAY; Complete Time: 13:05 kb Administered Medications: No medications were administered Disposition: 21:09 Co-signature as Attending Physician, Cornell FITCH was immediately available on-site ms3 in the Emergency Department for consultation in the care of the patient.. Disposition Summary: 08/09/22 13:24 Discharge Ordered Location: Home kb Condition: Stable kb Diagnosis - Fall on same level from slipping, tripping and stumbling without subsequent kb striking against object - Pain in left knee kb - Pain in left foot kb Followup: kb - With: Emergency Department - When: As needed - Reason: Worsening of condition Followup: kb - With: Jadon Gilbert MD - When: 2 - 3 days - Reason: Recheck today's complaints, Continuance of care, Re-evaluation by your physician Discharge Instructions: - Discharge Summary Sheet kb - Musculoskeletal Pain kb Forms: - Medication Reconciliation Form kb - Thank You Letter kb - Antibiotic Education kb - Prescription Opioid Use kb Signatures: Dispatcher [employer] Ailyn Miranda, SUDARSHANC PARESH-Mercedes Flores, RN RN jl7 Cornell Knight, DO ELI ms3
[2022-08-09 13:58] VITALS: BP 112/57; TEMP 98.2; O2SAT 100
== END 2022-08-09 13:36 | disposition home or self-care (01) ==
LOC: ER 10:45
DX: M25.562 Pain in left knee (principal); M79.672 Pain in left foot; W01.0XXA Fall on same level from slipping, tripping and stumbling without subsequent striking against object, initial encounter; I10 Essential (primary) hypertension; Z88.2 Allergy status to sulfonamides
CPT/HCPCS: 99283

== ENCOUNTER 2022-09-03 19:20 | Observation (INO) | payer OTHER ==
--- OUTSIDE RECORDS SUMMARY | 2022-09-03 19:23 | XMS REPORT | Continuity of Care Document ---
:1940 Author Organization [facility] t Address [facility] [address] [place] [address] Care Team Providers Name Role Phone Pcp, Patient Does Not Have A Primary Care Physician +[id number] Therapy, Adc Covid Infusion Attending Clinician Unavailable Judd Cartagena MD Attending Clinician JUDD CARTAGENA Attending Clinician Unavailable Provider, [facility] Attending Clinician Unavailable Doctor Unassigned, Vevay Attending Clinician Unavailable Only, Ang Db Test [...] Active [facility] Class ity of [facility] Social History Social Habit Start Date Stop Date Quantity Comments Source Exposure to Yes [facility] SARS-CoV-2 (event) Medica l Branch Sex Assigned At [birth year] [facility] 00:00:00 00:00:00 [facility] Smoking Status Start Date Stop Date Source Unknown if ever smoked [facility] Medications Ordered Filled Start Stop Current Ordering Indication Dosage Frequency Signature Comments Components Source Medication Medication Date Date Medication? Clinician (SIG) Name Name sotrovimab 2021- No [id number] 500mg 500 mg, IV Univers (XEVUDY) 11-01 Infusion, ity o f 500 mg in 23:30: 22:50 [facility], [place] NaCl 0.9% 00 :00 Administer Medi miguelito (NS) 50 mL over 30 Branch MINI-BAG Minutes, On Sun11/01/21 at 1730, For [address] able 24 hours refrigerat ed or 6 hours at room temperatur e including transporta tion and infusion time.
Vital Signs Vital Name Observation Time Observation Value Comments Source Systolic blood 2021-11-01 23:47:00 174 mm[Hg] Univer sity of pressure [facility] Diastolic blood 2021-11-01 23:47:00 57 mm[Hg] [facility] 2021-11-01 23:47:00 60 /min [facility] Body temperature 2021-11-01 23:47:00 37.11 [facility] Respiratory rate 2021-11-01 23:47:00 20 /min [facility] Oxygen saturation in 2021-11-01 23:47:00 96 /min [facility] Arterial blood by [facility] Pulse oximetry Branch Body height 2021-11-01 22:19:00 170.2 cm [facility] Body weight 2021-11-01 22:19:00 74.844 kg [facility] BMI 2021-11-01 22:19:00 25.84 kg/m2 [facility] Procedures Procedure Date / Time Performing Clinician Source Performed IMMTRAC2 CONSENT 2021-11-01 06:01:00 Doctor Unassigned, [facility] Vevay [facility] LAB ONLY COVID 2021-10-30 18:42:00 Mel Marjorie [place] o [facility] COVID-19 (MOLECULAR 2021-10-30 18:42:00 Marjorie Leal [facility] TESTING [facility] NUCLEIC ACID AMPLIFICATION) Encounters Start End Encounter Admission Attending Care Care Encounter Source Date/Time Date/Time Type Type Clinicians Facility Department ID 2021-11-01 2021-11-01 Nurse Therapy, Adc Covid Infusion [facility] [id number] [facility] 16:00:00 17:00:00 Visit Judd Cartagena [id number] [id number] [id number] [facility] 0[address] Branch 2021-11-01 2021-11-01 Outpatient R CARTAGENA [facility] [id number] Univers 16:00:00 16:00:[address] [facility] 2021-11-01 2021-11-01 Outpatient R CARTAGENA [facility] [id number] Univers 16:00:00 16:00:[address] [facility] 2021-11-01 2021-11-01 Telephone Provider, [facility] [id number] Univers 00:00:00 00:00:00 Ang Urgent HEALTH [id number] ity of Care [place] [id number] [place] as ANNETET?BLEA [id number] [address] MEDICAL OFFICE BUILDING 2021-11-01 2021-11-01 Orders Doctor JONG [id number] Univers 00:00:00 00:00:00 Only Unassigned, MINI [id number] ity of Vevay [facility] [id number] [place] as [id number] [address] 2021-10-30 2021-10-30 Laboratory Only, Ang Db Test [facility] [id number] Univers 12:45:00 13:29:20 Only Dominique Lealcy HEALTH [id number] ity of [place] [id number] [place] as ANNETTE?BLEA [id number] [address] MEDICAL OFFICE BUILDING Results This patient has no known results.
[2022-09-03 21:23] LABS: Urine Blood Negative (Negative); Urine Glucose Negative (Negative); Urine Protein Negative (Negative); Urine pH 5.5 (5.0-7.0)
[2022-09-03 21:35] LABS: Hematocrit 32.4 % (36.0-45.0); Lymphocytes % 31.7 % (15.3-44.8); MCV 92.5 fL (80-100); MPV 8.4 fL (7.6-11.3); RBC Red Blood Cell Count 3.51 M/uL (3.86-4.86)
--- NOTE | 2022-09-03 21:50 | RAD REPORT ---
EXAM DESCRIPTION: CT - Head Brain Wo Cont - 09/03/2022 9:41 pm CLINICAL HISTORY: visual hallucinations Headache, drowsiness COMPARISON: No comparisonsNo comparisons TECHNIQUE: All CT scans are performed using dose optimization technique as appropriate and may inclu de automated exposure control or mA/KV adjustment according to patient size. FINDINGS: No intracranial hemorrhage, hydrocephalus or extra-axial fluid collection.No areas of brai n edema or evidence of midline shift. There is significant expansion of the sphenoid sinus with hyperostosis and internal hyperdensity. Thi s could be a mucocele. The calvarium is intact. IMPRESSION: No acute intracranial abnormality. Expansile sphenoid sinus hyperdense lesion is present which could represent a mucocele. Follow-up bra in MRI would be recommended.
[2022-09-03 21:53] LABS: Albumin 3.4 g/dL (3.4-5.0); Bilirubin Total 0.6 mg/dL (0.2-1.0); Potassium 4.4 mmol/L (3.5-5.1); Protein, Total 6.8 g/dL (6.4-8.2); Troponin High Sensitivity 8.7 pg/mL (<58.9)
[2022-09-03 22:09] LABS: Urine Bacteria <20 /HPF (<20); Urine Mucus Slight /HPF (None Seen); Urine RBC <5 /HPF (None Seen)
--- NOTE | 2022-09-03 22:09 | RAD REPORT ---
EXAM DESCRIPTION: RAD - Chest Single View - 09/03/2022 10:01 pm CLINICAL HISTORY: hallucinations Chest pain. COMPARISON: Chest Single View dated 04/24/2022; CHEST PA AND LAT 2 VIEW dated 08/25/2015; CHEST PA AN D LAT 2 VIEW dated 06/05/2009; CHEST SINGLE VIEW dated 06/04/2009 FINDINGS: Portable technique limits examination quality. The lungs are grossly clear. The heart is moderately enlarged. No displaced fractures.
--- NOTE | 2022-09-03 22:34 | ER ---
Nurse's Notes [facility] Name: Salome Keating Age: 82 yrs Sex: Female : 1940 Arrival Date: 09/03/2022 Time: 19:22 Bed 24 Private MD: Jadon Gilbert C Diagnosis: Visual hallucinations;Altered mental status, unspecified Presentation: 09/03 20:23 Chief complaint: Patient's son or daughter states: "she's been having kidney issues. as6 Dr. Gilbert wanted us to come in". Chief complaint: Patient states: "I've been seeing stuff that isn't there". Coronavirus screen: At this time, the client does not indicate any symptoms associated with coronavirus-19. Ebola Screen: No symptoms or risks identified at this time. Initial Sepsis Screen: Does the patient meet any 2 criteria? No. Patient's initial sepsis screen is negative. Does the patient have a suspected source of infection? No. Patient's initial sepsis screen is negative. Risk Assessment: Do you want to hurt yourself or someone else? Patient reports no desire to harm self or others. Onset of symptoms is unknown. 20:23 Method Of Arrival: Wheelchair as6 20:23 Acuity: JOLENE 3 as6 Triage Assessment: 20:30 General: Appears in no apparent distress. Behavior is calm, cooperative. Pain: Denies as6 pain. Historical: - Allergies: 20:28 Sulfa (Sulfonamide Antibiotics); as6 - PMHx: 20:28 Arthritis; Atrial Fib; CHF; Hypertension; Kidney disease; as6 - PSHx: 20:28 Cholecystectomy; colon; Appendectomy; Total abdominal hysterectomy; as6 - Immunization history:: Client reports receiving the 2nd dose of the Covid vaccine, pfizer Flu vaccine is up to date. - Social history:: Smoking status: Patient denies any tobacco usage or history of. Screenin:25 Abuse screen: Denies threats or abuse. Nutritional screening: No deficits noted. em6 Tuberculosis screening: No symptoms or risk factors identified. Fall Risk IV access (20 points). Total Fontenot Fall Scale indicates No Risk (0-24 pts). Assessment: 20:25 General: Appears comfortable, Behavior is cooperative. Pain: Denies pain. Neuro: em6 Nix Agitation-Sedation Scale (RASS): 0 - Alert and Calm. Cardiovascular: Heart tones present Rhythm is sinus bradycardia. Respiratory: Airway is patent Respiratory effort is even, unlabored, Respiratory pattern is regular, symmetrical, Breath sounds are clear bilaterally. GI: No signs and/or symptoms were reported involving the gastrointestinal system. : No signs and/or symptoms were reported regarding the genitourinary system. EENT: No signs and/or symptoms were reported regarding the EENT system. Derm: No signs and/or symptoms reported regarding the dermatologic system. Derm: No signs and/or symptoms reported regarding the dermatologic system. Musculoskeletal: Circulation, motion, and sensation intact. Swelling present in right leg and left leg. 21:30 Reassessment: Patient appears in no apparent distress at this time. No changes from em6 previously documented assessment. Patient and/or family updated on plan of care and expected duration. Pain level reassessed. Patient is alert, oriented x 3, equal unlabored respirations, skin warm/dry/pink. 22:30 Reassessment: Patient appears in no apparent distress at this time. No changes from em6 previously documented assessment. Patient and/or family updated on plan of care and expected duration. Pain level reassessed. Patient is alert, oriented x 3, equal unlabored respirations, skin warm/dry/pink. 23:30 Reassessment: Patient appears in no apparent distress at this time. No changes from em6 previously documented assessment. Patient and/or family updated on plan of care and expected duration. Pain level reassessed. Patient is alert, oriented x 3, equal unlabored respirations, skin warm/dry/pink. Vital Signs: 20:23 BP 131 / 57; Pulse 46; Resp 18 S; Temp 97.9(O); Pulse Ox 98% on R/A; Weight 73.03 kg as6 (R); Height 5 ft. 7 in. (170.18 cm) (R); Pain 0/10; 22:00 BP 138 / 64; Pulse 54; Resp 18; Pulse Ox 99% on R/A; em6 23:00 BP 142 / 64; Pulse 52; Resp 18; Pulse Ox 98% on R/A; em6 20:23 Body Mass Index 25.22 (73.03 kg, 170.18 cm) as6 ED Course: 19:22 Patient arrived in ED. as 19: Jadon Gilbert MD is Private Physician. as 19:47 Adelaida Barker MD is Attending Physician. sd2 20:25 Bed in low position. Call light in reach. Side rails up X 1. Pulse ox on. NIBP on. Warm em6 blanket given. 20:28 Triage completed. as6 20:30 Arm band placed on. as6 20:55 Kelli Villar, RN is Primary Nurse. em6 21:18 Inserted saline lock: 22 gauge in right forearm, using aseptic technique. Blood em6 collected. 21:23 Troponin High Sensitivity Sent. em6 21:23 CMP Sent. em6 21:23 CBC with Diff Sent. em6 21:23 Urine Microscopic Only Sent. em6 21:23 AMMONIA Sent. em6 21:23 Procalcitonin Sent. em6 21:42 CT Head Brain wo Cont In Process Unspecified. EDMS 22:03 XRAY Chest (1 view) In Process Unspecified. EDMS 22:32 Jadon Gilbert MD is Hospitalizing Provider. sd2 09/04 00:16 COVID-19/FLU A+B Sent. ke1 Administered Medications: No medications were administered Outcome: 09/03 22:33 Decision to Hospitalize by Provider. sd2 09/04 10:54 Patient left the ED. iw Signatures: Dispatcher [employer] EDMS Flores Villar Irene, RN RN iw Dejuan Corrales, ARTUR RN as6 Juliane Pate RN RN ke1 Adelaida Barker MD MD sd2 Kelli Villar, RN RN em6 Corrections: (The following items were deleted from the chart) 09/03 23:53 20:25 Musculoskeletal: Circulation, motion, and sensation intact. em6 em6
--- NOTE | 2022-09-03 22:34 | EDPHYS ---
Physician Documentation [facility] Name: Salome Keating Age: 82 yrs Sex: Female : 1940 Arrival Date: 09/03/2022 Time: 19:22 Bed 24 Private MD: Jadon Gilbert C ED Physician Adelaida Barker HPI: 09/03 20:39 This 82 yrs old Female presents to ER via Wheelchair with complaints of hallucinations. sd2 20:39 82 yo F presents with CC of visual hallucinations. Reports ongoing for the past couple sd2 of days and unable to sleep well due to them. Reports seeing people that she knows are not there such as her brother and small children she saw in her home today that she stated she was able to touch and feel. Denies any new pain, fever, recent illness. Does endorse urinary frequency more than normal today. Family reports patient had hallucinations like this with prior UTI in the past. . Historical: - Allergies: 20:28 Sulfa (Sulfonamide Antibiotics); as6 - PMHx: 20:28 Arthritis; Atrial Fib; CHF; Hypertension; Kidney disease; as6 - PSHx: 20:28 Cholecystectomy; colon; Appendectomy; Total abdominal hysterectomy; as6 - Immunization history:: Client reports receiving the 2nd dose of the Covid vaccine, [place] Flu vaccine is up to date. - Social history:: Smoking status: Patient denies any tobacco usage or history of. ROS: 20:39 Constitutional: Negative for fever, chills, and weight loss, Eyes: Negative for injury, sd2 pain, redness, and discharge, Cardiovascular: Negative for chest pain, palpitations, and edema, Respiratory: Negative for shortness of breath, cough, wheezing. Abdomen/GI: Negative for abdominal pain, nausea, vomiting, diarrhea. : Negative for dysuria, hesitancy, urgency and hematuria. Positive for frequency. MS/Extremity: Negative for injury and deformity, Skin: Negative for injury, rash, and discoloration, Neuro: Negative for headache, numbness and tingling. Exam: 20:39 Constitutional: This is a well developed, well nourished patient who is awake, alert, sd2 and in no acute distress. Head/Face: Normocephalic, atraumatic. Eyes: EOMI, normal conjunctiva bilaterally Chest/axilla: Normal chest wall appearance and motion. Nontender with no deformity. Cardiovascular: Regular rate and rhythm with a normal S1 and S2. No gallops, murmurs, or rubs. 2+ distal pulses. Respiratory: Lungs have equal breath sounds bilaterally, clear to auscultation and percussion. No rales, rhonchi or wheezes noted. No increased work of breathing, no retractions or nasal flaring. Abdomen/GI: Soft, non-tender, with normal bowel sounds. No guarding or rebound. No evidence of tenderness throughout. Skin: Warm, dry with normal turgor. Normal color with no rashes, no lesions, and no evidence of cellulitis. MS/ Extremity: Pulses equal, no cyanosis. Neurovascular intact. Full, normal range of motion. Psych: Awake, alert, with orientation to person, place and time. Behavior, mood, and affect are within normal limits. 21:27 ECG was reviewed by the Attending Physician. NSR, rate 87, no STEMI criteria sd2 Vital Signs: 20:23 BP 131 / 57; Pulse 46; Resp 18 S; Temp 97.9(O); Pulse Ox 98% on R/A; Weight 73.03 kg as6 (R); Height 5 ft. 7 in. (170.18 cm) (R); Pain 0/10; 22:00 BP 138 / 64; Pulse 54; Resp 18; Pulse Ox 99% on R/A; em6 23:00 BP 142 / 64; Pulse 52; Resp 18; Pulse Ox 98% on R/A; em6 20:23 Body Mass Index 25.22 (73.03 kg, 170.18 cm) as6 MDM: 20:37 Patient medically screened. sd2 20:39 Differential Diagnosis Dehydration, electrolyte abnormality, UTI, PNA, anemia among sd2 others. Data reviewed: vital signs, nurses notes. 22:31 Data reviewed: lab test result(s), EKG, radiologic studies. Counseling: I had a sd2 detailed discussion with the patient and/or guardian regarding: the historical points, exam findings, and any diagnostic results supporting the discharge/admit diagnosis, lab results, radiology results, the need for further work-up and treatment in the hospital. ED course: Labs and imaging reviewed. No inciting etiology found for patient's visual hallucinations. UA without infection. No evidence of infection on labs. VSS aside from mild bradycardia with stable BP. Pt otherwise with no focal neuro deficits. Will require further workup in hospital. pt to be admitted for further management at this time. . 09/03 20:38 Order name: CBC with Diff; Complete Time: 21:45 sd2 09/03 20:38 Order name: CMP; Complete Time: 21:56 sd2 09/03 20:38 Order name: Troponin High Sensitivity; Complete Time: 21:56 sd2 09/03 20:38 Order name: Urine Microscopic Only; Complete Time: 22:24 sd2 09/03 20:38 Order name: Procalcitonin; Complete Time: 22:31 sd2 09/03 20:38 Order name: AMMONIA; Complete Time: 22:24 sd2 09/03 20:38 Order name: XRAY Chest (1 view); Complete Time: 22:24 sd2 09/03 21:24 Order name: Urine Dipstick-Ancillary; Complete Time: 21:42 EDMS 09/03 23:07 Order name: Basic Metabolic Panel EDMS 09/03 23:07 Order name: Basic Metabolic Panel; Complete Time: 06:41 EDMS 09/03 23:07 Order name: CBC with Automated Diff EDMS 09/03 23:07 Order name: CBC with Automated Diff; Complete Time: 06:41 EDMS 09/04 00:02 Order name: COVID-19/FLU A+B wm 09/04 01:13 Order name: COVID-19/FLU A+B; Complete Time: 06:41 EDMS 09/03 20:38 Order name: EKG - Nurse/Tech; Complete Time: 21:23 sd2 09/03 20:38 Order name: Urine Dipstick-Ancillary (obtain specimen); Complete Time: 21:23 sd2 09/03 20:38 Order name: CT Head Brain wo Cont; Complete Time: 21:56 sd2 09/03 23:07 Order name: Heart Healthy EDMS 09/04 09:15 Order name: MRI EDNH Administered Medications: No medications were administered Disposition Summary: 09/03/22 22:33 Hospitalization Ordered Hospitalization Status: Observation sd2 Provider: Jadon Gilbert Condition: Stable sd2 Problem: new sd2 Symptoms: are unchanged sd2 Bed/Room Type: Standard sd2 Location: [facility] ER HOLD(09/03/22 22:37) mw Room Assignment: ERHOLD-(09/03/22 22:37) mw Diagnosis - Visual hallucinations sd2 - Altered mental status, unspecified sd2 Forms: - Medication Reconciliation Form sd2 - SBAR form sd2 Signatures: Dispatcher [employer] EDMS Samira Mauricio RN RN Dejuan Noland RN RN as6 Adelaida Barker MD MD sd2 Corrections: (The following items were deleted from the chart) 22: 22:33 Telemetry/MedSurg (observation) sd2 mw 22:37 22:33 sd2 mw
[2022-09-03] MEDS ORDERED: ONDANSETRON 4 MG/2 ML VIAL IV PRN (23:04)
[2022-09-03] MEDS ORDERED: ACETAMINOPHEN 500 MG TAB PO PRN (23:04)
[2022-09-04 00:24] VITALS: BMI 25.2
[2022-09-04 01:13] LABS: SARS-COV-2 RT PCR NEGATIVE (NEGATIVE)
[2022-09-04 03:46] LABS: Absolute Lymphocytes (CBC) 1.8 K/uL (0.7-4.9); Hematocrit 29.6 % (36.0-45.0); Lymphocytes % 37.5 % (15.3-44.8); MCV 92.2 fL (80-100); MPV 8.7 fL (7.6-11.3); RBC Red Blood Cell Count 3.21 M/uL (3.86-4.86)
[2022-09-04 03:59] LABS: Potassium 3.8 mmol/L (3.5-5.1)
[2022-09-04 08:59] VITALS: BP 146/59; TEMP 97.9
[2022-09-04 09:14] VITALS: O2SAT 100
--- NOTE | 2022-09-04 09:15 | RAD REPORT ---
EXAM DESCRIPTION: MRI - Brain Wo Cont - 09/04/2022 8:47 am CLINICAL HISTORY: hallucination COMPARISON: Head Brain Wo Cont dated 09/03/2022 TECHNIQUE: Sagittal T1-weighted images were obtained along with axial PD, heavily T2-weighted and T2 -FLAIR images. Axial DWI and ADC mapping sequences were also obtained along with coronal heavily T2-w eighted images. FINDINGS: No intracranial hemorrhage, mass or acute infarction. There is no edema or shift of midlin e structures. No extra-axial fluid collections. Aburto-matter/white matter junction is preserved. Signa l voids are seen as a normal finding in the major intracranial vessels. Atrophy and chronic ischemic changes are present with minimal in severity. Ventricles are in proporti on to any volume loss. Mastoid air cells are clear. Sphenoid sinus opacification is again noted. No globe or orbital content abnormality. IMPRESSION: Minimal atrophy and chronic ischemic changes. No acute intracranial finding.
--- NOTE | 2022-09-04 15:29 | EKG ---
Test Date: 2022-09-03 Test Time: 21:02:20 Insurance Writer: MEASUREMENT RESULTS: Intervals: Rate: 50 NM: 184 QRSD: 80 QT: 498 QTc: 454 [place]: P: 87 NM: 184 QRS: 48 T: 50 INTERPRETIVE STATEMENTS: Sinus bradycardia with premature atrial complexes Otherwise normal ECG Compared to ECG 04/24/2022 12:22:14 Atrial premature complex(es) now present Electronically Signed On 09-04-22 15:27:39 BASS GUITAR TEACHER by Zaki Cabral
--- NOTE | 2022-09-07 17:06 | SS ---
Date of Admission: 09/04/2022 Date of Discharge: 09/04/2022 Chief Complaint: Seeing things. History Of Present Illness: This is an 82-year-old very pleasant female patient who was brought into emergency room last night with visual hallucination. This problem started few days ago. No fall. No head injury. No fever, chills, nausea, vomiting. No other acute illness. No recent change in her medications either. After she was evaluated in the ER, she was admitted to the hospital overnight for observation. This morning when I saw her, she denied any other specific complaints. Allergies: TO BENADRYL CAUSING HALLUCINATIONS. Medications: She takes hydrocodone as prescribed by her pain management physician for a long time. She is also on Eliquis 2.5 mg 2 times a day; cholestyramine powder half a pack in 4 ounce water, drink it 2 times a day for chronic diarrhea problem; furosemide 40 mg daily; metoprolol tartrate 25 mg 2 times a day; potassium chloride 20 mEq half a tablet daily; sotalol 80 mg 2 times a day; trazodone 100 mg daily at bedtime; valsartan 80 mg daily. 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 Musculoskeletal: Chronic joint pain. All other systems reviewed and negative. Past Medical History: Significant for COVID-19 infection on October 28, 2021, restless legs syndrome, insomnia, allergic rhinitis, hypothyroidism, type 2 diabetes mellitus, hypertension, hyperlipidemia, paroxysmal atrial fibrillation, gastroesophageal reflux disease, diverticulosis, chronic kidney disease, osteoarthritis, anemia, osteopenia. Past Surgical History: Cataract surgery, tonsillectomy, cholecystectomy, appendectomy, partial colectomy, hysterectomy. Family History: Father , had lung cancer. Mother , had colon cancer, heart disease, and stroke. Son has glaucoma. Daughter with depression and migraine problem. Social History: Negative for smoking and alcohol use. Physical Examination: Vital Signs: Temperature 98.1, pulse 61, respiratory rate 15, blood pressure 144/76, saturation 99% on room air. Height 5 feet 7 inches, weight 161 pounds. General: Awake, alert, oriented, not in distress. HEENT: Head atraumatic, normocephalic. Conjunctivae nonerythematous. Sclerae white. Mouth, no thrush or edema noted. Ears/Nose, no mass, lesion, discharge noted. Neck: Supple. No JVD, lymph nodes, bruit, thyromegaly noted. Lungs: Bilateral good equal air entry. Clear to auscultation. No rhonchi. No rales. Heart: Normal heart sounds, no murmur or gallop. Abdomen: Soft, bowel sounds normal. No guarding, rigidity, tenderness, mass, hepatosplenomegaly, distention, or bruit noted. Extremities: No leg edema. No calf tenderness. Skin: No rash, ulcer, cellulitis. Lymphatics: No lymph node enlargement in neck, supraclavicular, infraclavicular region. Neuro: No focal neurological deficit. Chest: Unremarkable. External Genitalia: Deferred. Rectal: Deferred. Laboratory Data: Yesterday, white count 6.3, hemoglobin 10.8, platelets 187. This morning, white count 4.9, hemoglobin 10, platelets 150. Yesterday, sodium 140, potassium 4.4, chloride 102, bicarb 32, BUN 16, creatinine 1.35, glucose 119. Liver function tests are unremarkable. Troponin 8.7. Ammonia level less than 15. Procalcitonin less than 0.05. This morning, sodium 141, potassium 3.8 chloride 106, bicarb 32, BUN 16, creatinine 1.30, glucose 105. Urinalysis negative. Influenza A, B and COVID-19 test negative. CAT scan of the brain was negative for any acute intracranial changes and MRI of the brain done today, which was negative for any stroke or any other acute changes. Hospital Course: After patient was evaluated in the emergency room, she was admitted overnight for observation. Stroke was ruled out and patient was discharged to go home in stable condition with outpatient followup as per instruction. On outpatient basis, we will refer her to neurologist. Final Diagnoses: 1. Visual hallucinations. 2. Hypertension. 3. Hyperlipidemia. 4. Paroxysmal atrial fibrillation. 5. Chronic anticoagulation therapy. 6. Type 2 diabetes mellitus. 7. Hypothyroidism. 8. Allergic rhinitis. 9. Osteoarthritis, multiple sites. 10. Gastroesophageal reflux disease. 11. Diverticulosis. 12. Chronic kidney disease, stage 3B. 13. Anemia due to chronic kidney disease. Discharge Medications And Instructions: 1. Continue all prior home medications. 2. Follow up at my office next week. MAX/MODGardenia Voice ID: [id number] Report ID: [id number] MTDD
== END 2022-09-04 10:44 | disposition home or self-care (01) ==
LOC: ER 19:20 → ERHOLD 23:03
PROVIDERS: ADMIT Internal Medicine; ATTEND Internal Medicine
DX: R44.1 Visual hallucinations (principal); I48.0 Paroxysmal atrial fibrillation; Z79.01 Long term (current) use of anticoagulants; E78.5 Hyperlipidemia, unspecified; E03.9 Hypothyroidism, unspecified; J30.9 Allergic rhinitis, unspecified; K21.9 Gastro-esophageal reflux disease without esophagitis; K57.30 Diverticulosis of large intestine without perforation or abscess without bleeding; E11.22 Type 2 diabetes mellitus with diabetic chronic kidney disease; I12.9 Hypertensive chronic kidney disease with stage 1 through stage 4 chronic kidney disease, or unspecified chronic kidney disease; N18.32 Chronic kidney disease, stage 3b; D63.1 Anemia in chronic kidney disease; Z20.822 Contact with and (suspected) exposure to COVID-19
CPT/HCPCS: 93005; 85025 ×2; 80048; 36415; 82140; 84484; 80053; 84145; 0240U; 70450; 71045; 70551; 99284; G0378 ×2; 81003; 81015

== ENCOUNTER 2023-04-30 15:53 | Inpatient (IN) | payer OTHER ==
--- OUTSIDE RECORDS SUMMARY | 2023-04-30 15:56 | XMS REPORT | Continuity of Care Document ---
:1940 Author Organization [facility] t Address [address] [place] [address] Care Team Providers Name Role Phone Pcp, Patient Does Not Have A Primary Care Physician +[id number] Bill Marin Attending Clinician Therapy, [facility] Covid Infusion Attending Clinician Unavailable Judd Cartagena MD Attending Clinician JUDD CARTAGENA Attending Clinician Unavailable Provider, [facility] Attending Clinician Unavailable Doctor Unassigned, [place] Attending Clinician Unavailable Only, Ang Db Test Attending Clinician Unavailable Marjorie Leal PA-C Attending Clinician Payers Payer Name Policy Type Policy Number Effective Date Expiration Date S ource Problems Condition Condition Condition Status Onset Resolution Last Treating Co mments Source Name Details Category Date Date Treatment Clinician Date Atrial Atrial Problem Active 2023-01-20 Kevin yakelin fibrillati fibrillati 02:54:45 l on on [place] (disorder) (disorder) Active Problem 01/20/2023 [facility] [place] Congestive Congestiv Problem Active 2023-01-20 Memoria heart e heart 02:54:45 l failure failure [place] (disorder) (disorder) Active Problem 01/20/2023 [facility] [place] Diverticul Diverticu Problem Active 2023-01-20 Memoria itis litis 02:54:45 l (disorder) (disorder) He rmann Active Problem 01/20/2023 [facility] [place] End stage End stage Problem Active 2023-01-20 Memoria renal renal 02:54:45 l disease disease [place] (disorder) (disorder) Active Problem 01/20/2023 [facility] [place] Glaucoma Glaucoma Problem Active 2023-01-20 Memoria (disorder) (disorder) 02:54:45 l Active [place] Problem 01/20/2023 [facility] [place] Hallucinat Hallucina Problem Active 2023-01-20 Memoria ions tions 02:54:45 l (finding) (finding) Herm mary Active Problem 01/20/2023 [facility] [place] Hypertensi Hypertens Problem Active 2023-01-20 Memoria ve davide 02:54:45 l disorder, disorder, Herm mary systemic systemic arterial arterial (disorder) (disorder) Active Problem 01/20/2023 [facility] [place] Osteoarthr Osteoarth Problem Active 2023-01-20 Memoria itis ritis 02:54:45 l (disorder) (disorder) He rmann Active Problem 01/20/2023 [facility] [place] Renal Renal Problem Active 2023-01-20 Memor ia failure failure 02:54:45 l syndrome syndrome Jaime n (disorder) (disorder) Active Problem 01/20/2023 [facility] [place] Allergies, Adverse Reactions, Alerts Allergy Allergy Status Severity Reaction(s) Onset Inactive Treating Comm ents Source Name Type Date Date Clinician sulfa sulfa Active Memoria drugs drugs l [place] NO KNOWN Drug Active [facility] ALLERGIE Class ity of [facility] Social History Social Habit Start Date Stop Date Quantity Comments Source Exposure to Yes [facility] SARS-CoV-2 (event) [facility] Sex Assigned At [birth year] [facility] 00:00:00 00:00:00 [facility] Smoking Status Start Date Stop Date Source Unknown if ever smoked [facility] Tobacco smoking status [facility] Medications Ordered Filled Start Stop Current Ordering Indication Dosage Frequency Signature Comments Components Source Medication Medication Date Date Medication? 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, Weight acetaminoph Yes TAKE 1 Kevin yakelin en-hydrocod 1-18 TABLET BY l one 325 20:29: MOUTH [place] mg-5 mg 00 TWICE oral tablet DAILY FOR 35 DAYS NEEDED Eliquis 2.5 Yes TAKE 1 Kevin yakelin mg oral 1-18 TABLET BY l tablet 20:29: MOUTH [place] 00 TWICE DAILY amitriptyli Yes 10 mg = 1 M emoria ne 10 mg 1-18 tab, PO, l oral tablet 20:29: Bedtime, # [place] 00 30 tab, 1 Refill(s) loratadine Yes 10 mg = 1 Me moria 10 mg oral 1-18 tab, PO, l tablet 20:28: Daily, # 7 Joanne nn 00 tab, 0 Refill(s) One A Day Yes PO, Daily, Me moria Women's 1-18 0 l Complete 20:28: Refill(s) Herm mary 00 brinzolamid Yes 1 drp, Kevin yakelin e 1-18 OPTH, TID, l ophthalmic 20:28: # 10 mL, 0 H ermann 1% 00 Refill(s) suspension valsartan Yes PO, 0 Memoria 1-18 Refill(s) l 20:27: [place] 00 metoprolol Yes 25 mg = 1 Me moria tartrate 25 1-18 tab, PO, l mg oral 20:26: BID, # 60 Joanne nn tablet 00 tab, 0 Refill(s) nystatin-tr Yes 1 appl, Mem oria iamcinolone 1-18 TOP, BID, l topical 20:26: # 30 gm, 0 Herm mary cream 00 Refill(s) potassium Yes 0 Memoria chloride 1-18 Refill(s) l 20:26: [place] 00 Sotalol Yes 80 mg = 1 Memor ia Hydrochlori 1-18 tab, PO, l de AF 80 mg 20:26: BID, # 60 H ermann oral tablet 00 tab, 0 Refill(s) famotidine Yes 40 mg = 1 Me moria 40 mg oral 1-18 tab, PO, l tablet 20:25: Daily, # [place] 00 30 tab, 0 Refill(s) furosemide Yes 40 mg = 1 Me moria 40 mg oral 18 tab, PO, l tablet 20:25: Daily, # [place] 00 90 tab, 0 Refill(s) Lumigan Yes 1 drp, Memoria 0.01% 11-01 BOTH EYES, l ophthalmic 20:24: Bedtime, # H ermann solution 00 5 mL, 4 Refill(s) Combigan Yes 1 drp, Memoria ophthalmic 11-01 OPTH, l solution 20:24: Q12H, # 10 Her carmichael 00 mL, 0 Refill(s) cholestyram Yes 4 gm, PO, M emoria ine 4 g/9 g 11-01 BID, # l oral powder 20:24: 1,134 gm, H ermann 00 0 Refill(s) sotrovimab 2021- No [id number] 500mg 500 mg, IV [facility] (XEVUDY) 11-01 Infusion, ity o f 500 mg in 23:30: 22:50 ONCE, [place] NaCl 0.9% 00 :00 Administer Medi miguelito [...] Hospital Diastolic blood 2021-11-01 23:47:00 57 mm[Hg] [facility] Heart rate 2021-11-01 23:47:00 60 /min [facility] Body temperature 2021-11-01 23:47:00 37.11 Frida [facility] Respiratory rate 2021-11-01 23:47:00 20 /min [facility] Oxygen saturation in 2021-11-01 23:47:00 96 /min [facility] Arterial blood by [place] Medi miguelito Pulse oximetry Branch Body height 2021-11-01 22:19:00 170.2 cm [facility] Body weight 2021-11-01 22:19:00 74.844 kg [facility] BMI 2021-11-01 22:19:00 25.84 kg/m2 [facility] Systolic (mm Hg) 2022-12-06 18:04:00 Kevin rial [place] Diastolic (mm Hg) 2022-12-06 18:04:00 Mem orial [place] Heart Rate 2022-12-06 18:04:00 [facility] [place] Height 2022-12-06 18:04:00 5 [ft_i] [facility] [place] Weight 2022-12-06 18:04:00 [facility] [place] BMI Calculated 2022-12-06 18:04:00 Memori al [place] Systolic (mm Hg) 2022-11-01 20:08:00 Kevin rial [place] Diastolic (mm Hg) 2022-11-01 20:08:00 Mem orial [place] Heart Rate 2022-11-01 20:08:00 [facility] [place] Height 2022-11-01 20:08:00 5 [ft_i] [facility] [place] Weight 2022-11-01 20:08:00 [facility] [place] BMI Calculated 2022-11-01 20:08:00 Memori al [place] Procedures Procedure Date / Time Performing Clinician Source Performed IMMTRAC2 CONSENT 2021-11-01 06:01:00 Doctor Unassigned, [facility] [place] [facility] LAB ONLY COVID 2021-10-30 18:42:00 Mel Marjorie [facility] COVID-19 (MOLECULAR 2021-10-30 18:42:00 Marjorie Leal [facility] NUCLEIC ACID AMPLIFICATION) Hysterectomy [facility] [place] Cholecystectomy [facility] [place] Appendectomy [facility] [place] Tonsillectomy [facility] [place] Encounters Start End Encounter Admission Attending Care Care Encounter Source Date/Time Date/Time Type Type Clinicians Facility Department ID 2023-01-17 2023-01-17 Ambulatory [facility]NA [id number] Memoria 20:15:00 20:15:00 Pre-Reg Neurology 03 l [place] 2023-01-17 2023-01-17 Outpatient [facility] [id number] Memoria 15:15:00 15:15:00 03 jamia Tse 2023-01-17 2023-01-17 Outpatient VIMAL MarinVASCHER MISCHER [id number] 15:15:00 15:15:00 Bill 03 Gal 2022-12-06 2022-12-07 Outpatient [facility] MNA [id number] Memoria 17:45:00 05:59:59 Neurology 01 jamia Tse 2022-12-06 2022-12-[address] [id number] 11:45:00 23:59:59 Bill 01 Gal 2022-12-06 2022-12-06 Outpatient MHIE MHIE [id number] Memoria 11:45:00 11:45:00 01 jamia Tse 2022-11-21 2022-11-22 Outpatient [facility] MNA [id number] Memoria 19:00:00 05:59:59 Neurology 02 jamia Tse 2022-11-21 2022-11-21 Outpatient VIMAL [facility] [id number] 13:00:00 23:59:59 Bill 02 Gal 2022-11-21 2022-11-21 Outpatient MHIE MHIE [id number] Memoria 13:00:00 13:00:00 02 jamia Tse 2022-11-01 2022-11-02 Outpatient [facility] MNA [id number] Memoria 20:00:00 05:59:59 Neurology 00 jamia Ba [place] 2022-11-01 2022-11-01 Outpatient [facility] [id number] 14:00:00 23:59:59 Bill 00 Gal 2022-11-01 2022-11-01 Outpatient MHIE MHIE [id number] Memoria 14:00:00 14:00:00 00 jamia [place] 2022-11-01 2022-11-01 Outpatient [facility]IE MHIE [id number] Memoria 14:00:00 14:00:00 00 jamia Tse 2021-11-01 2021-11-01 Nurse Therapy, Adc Covid Infusion [facility] [id number] [facility] 16:00:00 17:00:00 Visit Judd Cartagena [id number] ity [id number] [id number] [facility] [address] [place] 2021-11-01 2021-11-01 Outpatient R [facility] [id number] Univers 16:00:00 16:00:00 JUDD [facility] 2021-11-01 2021-11-01 Outpatient R [facility] [id number] [facility] 16:00:00 16:00:00 JUDD [facility] 2021-11-01 2021-11-01 Telephone Provider, [facility] [id number] Univers 00:00:00 00:00:00 Ang Urgent HEALTH [id number] ity of Care [place] [id number] Alfredito as ANNETTE?BLEA [phone] [address] MEDICAL OFFICE BUILDING 2021-11-01 2021-11-01 Orders Doctor JONG [id number] [facility] 00:00:00 00:00:00 Only Unassigned, MINI [id number] ity of [place] [facility] [id number] Alfredito as [id number] [address] 2021-10-30 2021-10-30 Laboratory Only, Ang Db Test [facility] 1.2.8 [id number] Univers 12:45:00 13:29:20 Only Dominique Lealcy HEALTH [id number] ity of [place] [id number] Alfredito as ANNETTE?BLEA [id number] [address] MEDICAL OFFICE BUILDING Results This patient has no known results.
[2023-04-30 17:27] LABS: Absolute Lymphocytes (CBC) 2.2 K/uL (0.7-4.9); Hematocrit 34.2 % (36.0-45.0); Lymphocytes % 26.8 % (15.3-44.8); MCV 91.6 fL (80-100); MPV 8.7 fL (7.6-11.3); RBC Red Blood Cell Count 3.73 M/uL (3.86-4.86)
[2023-04-30 17:42] LABS: Magnesium 2.2 mg/dL (1.6-2.4); Potassium 3.4 mEq/L (3.5-5.1); Troponin High Sensitivity 8.1 pg/mL (<58.9)
--- NOTE | 2023-04-30 17:52 | RAD REPORT ---
EXAM DESCRIPTION: Gavi Single View04/30/2023 5:34 pm CLINICAL HISTORY: Chest pain COMPARISON: 2021 FINDINGS: Mild right basilar lung opacity Left lung appears clear of acute infiltrate. Heart is mildly enlarged IMPRESSION: Mild right basilar opacities may indicate a mild
[2023-04-30 18:24] LABS: Specific Gravity 1.008 (1.005-1.030); Urine Bacteria None Seen /HPF (<20); Urine Bilirubin NEGATIVE (Negative); Urine Blood Negative (Negative); Urine Clarity Turbid (Clear); Urine Color Light-Yellow (Yellow); Urine Glucose NEGATIVE (Negative); Urine Protein NEGATIVE (Negative); Urine RBC <5 /HPF (None Seen); Urine Urobilinogen Normal (Normal); Urine pH 6.5 (5.0-7.0)
--- NOTE | 2023-04-30 19:20 | RAD REPORT ---
EXAM DESCRIPTION: CT - Chest Abdomen Pelvis W Cont - 04/30/2023 6:38 pm CLINICAL HISTORY: Chest and abdominal pain COMPARISON: none TECHNIQUE: Computed axial tomography of the chest, abdomen and pelvis was obtained. 100 cc Isovue-30 0 was administered intravenously. Oral contrast was not requested. This limits evaluation of bowel. All CT scans are performed using dose optimization technique as appropriate and may include automated exposure control or mA/KV adjustment according to patient size. FINDINGS: 3.7 centimeter consolidation right middle lobe. Mild tree-in-bud opacities left upper and right upper lobes. No mediastinal or hilar lymphadenopathy. No pleural effusion. No pericardial effusion. Cholecystectomy. Liver, spleen, pancreas and adrenals are unremarkable 2.7 centimeter cyst right kidney. 1.7 centimeter low to intermediate density mass left kidney. 10.5 centimeter cystic mass right kidney contains multiple septations. Portions of several of septati ons are thickened. Postsurgical changes involve colon. No evidence of diverticulitis. Ventral hernia contains a portion of transverse colon. The neck measures 6 centimeters Hysterectomy. No adnexal mass IMPRESSION: 3.7 centimeter consolidation right middle lobe probably pneumonia. 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 Followup renal ultrasound 3 months recommended
[2023-04-30] MEDS ORDERED: levoFLOXacin 250 MG TAB ONE (20:13)
[2023-04-30] MEDS ORDERED: POTASSIUM 25 MEQ EFFERV TAB ONE (20:14)
[2023-04-30] MEDS ORDERED: NA CHLORIDE 0.9% 500 ML ONE (20:14)
--- NOTE | 2023-04-30 20:24 | ER ---
Nurse's Notes [facility] Name: Salome Keating Age: 82 yrs Sex: Female : 1940 Arrival Date: 04/30/2023 Time: 15:53 Bed 6 Private MD: Diagnosis: Pneumonia in diseases classified elsewhere;SARS-associated coronavirus as the cause of diseases classified elsewhere;Weakness;Chest pain, unspecified Presentation: 04/30 16:06 Chief complaint: Patient states: "I've been having left sided chest pain that started mb9 today. I've had SOB/ D/N for the past 3-4 days and cramping.". Coronavirus screen: Vaccine status: Patient reports receiving the 2nd dose of the covid vaccine. Ebola Screen: No symptoms or risks identified at this time. Initial Sepsis Screen: Does the patient meet any 2 criteria? No. Patient's initial sepsis screen is negative. Does the patient have a suspected source of infection? No. Patient's initial sepsis screen is negative. Risk Assessment: Do you want to hurt yourself or someone else? Patient reports no desire to harm self or others. Onset of symptoms was April 30, 2023. 16:06 Method Of Arrival: Wheelchair mb9 16:06 Acuity: JOLENE 3 mb9 Triage Assessment: 16:09 General: Appears uncomfortable, Behavior is cooperative. Pain: Complains of pain in mb9 chest Pain does not radiate. Quality of pain is described as throbbing, Pain began suddenly, Is continuous. EENT: No deficits noted. Neuro: Nix Agitation-Sedation Scale (RASS): 0 - Alert and Calm Level of Consciousness is awake, alert, obeys commands, Oriented to person, place, time, situation, Appropriate for age. Cardiovascular: Patient's skin is warm and dry. Respiratory: Reports shortness of breath. GI: Reports diarrhea, nausea. : No signs and/or symptoms were reported regarding the genitourinary system. Derm: Skin is pink, warm \\T\\ dry. Musculoskeletal: Range of motion: intact in all extremities. Historical: - Allergies: 16:08 Sulfa (Sulfonamide Antibiotics); mb9 - Home Meds: 16:10 apixaban 2.5 mg oral tablet 2 times per day [Active]; Lasix 40 mg Oral tablet daily mb9 [Active]; metoprolol tartrate 25 mg Oral tablet once [Active]; sotalol 80 mg Oral tablet daily [Active]; valsartan 160 mg oral tablet daily [Active]; - PMHx: 16:08 Arthritis; Atrial Fib; CHF; Hypertension; kidney disease; mb9 16:10 Diverticulitis; mb9 - PSHx: 16:08 Appendectomy; Cholecystectomy; Colon; Total abdominal hysterectomy; mb9 - Immunization history:: Adult Immunizations up to date. - Social history:: Smoking status: Patient denies any tobacco usage or history of. Screenin:10 [facility] ED Fall Risk Assessment (Adult) History of falling in the last 3 months, mb9 including since admission No falls in past 3 months (0 pts) Confusion or Disorientation No (0 pts) Intoxicated or Sedated No (0 pts) Impaired Gait Yes (1 pt) Mobility Assist Device Used No (0 pt) Altered Elimination No (0 pt) Score/Fall Risk Level 3 or more points = High Risk Oriented to surroundings, Maintained a safe environment, Assessed \\T\\ reinforced patient's understanding of fall precautions. Abuse screen: Denies threats or abuse. Nutritional screening: No deficits noted. Tuberculosis screening: No symptoms or risk factors identified. Assessment: 16:58 Reassessment: No changes from previously documented assessment. Tonie Lantigua at BS. ll1 17:27 Reassessment: Patient appears in no apparent distress at this time. Patient and/or iw family updated on plan of care and expected duration. Pain level reassessed. Patient is alert, oriented x 3, equal unlabored respirations, skin warm/dry/pink. warm blanket given, placed on monitor, call light in reach. 18:20 Reassessment: Assisted pt to restroom, pt requested to ambulate with cane, pt tolerated aa5 well. . 19:15 Reassessment: Patient appears in no apparent distress at this time. Patient and/or jb4 family updated on plan of care and expected duration. Pain level reassessed. Patient is alert, oriented x 3, equal unlabored respirations, skin warm/dry/pink. 20:30 Reassessment: Patient appears in no apparent distress at this time. Patient and/or jb4 family updated on plan of care and expected duration. Pain level reassessed. Patient is alert, oriented x 3, equal unlabored respirations, skin warm/dry/pink. 21:51 Reassessment: Patient appears in no apparent distress at this time. Patient and/or jb4 family updated on plan of care and expected duration. Pain level reassessed. Patient is alert, oriented x 3, equal unlabored respirations, skin warm/dry/pink. Vital Signs: 16:06 BP 160 / 75; Pulse 57; Resp 18; Temp 97.9(O); Pulse Ox 98% on R/A; Weight 72.57 kg; mb9 Height 5 ft. 7 in. ; Pain 7/10; 17:30 BP 185 / 58; Pulse 54; Resp 16 S; Pulse Ox 97% on R/A; Pain 0/10; iw 20:24 BP 180 / 82; Pulse 68; Resp 16; Pulse Ox 100% on R/A; mb9 21:51 BP 181 / 66; Pulse 71; Resp 16; Pulse Ox 97% on R/A; jb4 22:15 BP 176 / 64; Pulse 69; Resp 16; Pulse Ox 96% on R/A; jb4 16:06 Body Mass Index 25.06 (72.57 kg, 170.18 cm) mb9 16:06 Pain Scale: Adult mb9 17:30 Pain Scale: Adult iw ED Course: 15:57 Patient arrived in ED. im 16:08 Triage completed. mb9 16:09 Arm band placed on. mb9 16:14 EKG done, by ED staff, reviewed by Maurisio Beltrán MD. mb9 16:27 Maurisio Lantigua PA is PHCP. cp 16:27 Maurisio Beltrán MD is Attending Physician. cp 16:50 Marva Marin, ARTUR is Primary Nurse. iw 16:58 Patient placed in an exam room, on a stretcher. ll1 17:14 Initial lab(s) drawn, by ct, sent to lab. Inserted saline lock: 22 gauge in right iw forearm, using aseptic technique. Blood collected. 17:15 Provided Education on: plan of care . iw 17:35 XRAY Chest (1 view) In Process Unspecified. EDMS 18:40 CT Chest, Abdomen, Pelvis - W/Contrast In Process Unspecified. EDMS 20:22 Jadon Gilbert MD is Hospitalizing Provider. cp 21:51 No provider procedures requiring assistance completed. Patient admitted, IV remains in jb4 place. 22:15 Patient has correct armband on for positive identification. Bed in low position. Call jb4 light in reach. Side rails up X 1. Administered Medications: 20:15 Drug: LevOfloxacin PO 500 mg Route: PO; mb9 20:24 Drug: NS 0.9% IV 500 ml Route: IV; Rate: 500 ml/hr; Site: right antecubital; mb9 20:24 Drug: Potassium PO Effervescent Tablet 25 mEq Route: PO; mb9 22:00 Drug: LORazepam PO 0.5 mg Route: PO; jb4 Medication: 16:10 VIS not applicable for this client. mb9 Outcome: 20:23 Decision to Hospitalize by Provider. cp 22:15 Admitted to Med/surg accompanied by tech, via stretcher, room 223, with chart. jb4 22:15 Condition: stable 22:15 Discharge instructions given to patient, family, Instructed on the need for admit, Demonstrated understanding of instructions. 22:26 Patient left the ED. jb4 Signatures: Dispatcher [employer] EDMarva Deleon, RN Danielle Fox, RN RN aa5 Maurisio Lantigua, PA PA Bg Fan RN RN jb4 José Grimes RN RN ll1 Danyell South RN RN mb9 Yoli Ford
--- NOTE | 2023-04-30 20:24 | EDPHYS ---
Physician Documentation [facility] Name: Salome Keating Age: 82 yrs Sex: Female : 1940 Arrival Date: 04/30/2023 Time: 15:53 Bed 6 Private MD: ED Physician Maurisio Beltrán HPI: 04/30 17:00 This 82 yrs old Female presents to ER via Wheelchair with complaints of cp Diarrhea, Chest Pain. 17:01 The patient or guardian reports chest pain that is located primarily in the anterior cp chest wall, left. Onset: this morning. 17:01 The patient presents to the emergency department with nausea, diarrhea, that is cp continuous, abdominal pain, described as crampy. 17:01 Onset: The symptoms/episode began/occurred 3 day(s) ago. cp 17:01 Possible causes: unknown. The chest pain is described as aching. cp 17:01 Associated signs and symptoms: Pertinent positives: anorexia, Pertinent negatives: cp constipation, dysuria, fever, GI bleeding. Historical: - Allergies: 16:08 Sulfa (Sulfonamide Antibiotics); mb9 - Home Meds: 16:10 apixaban 2.5 mg oral tablet 2 times per day [Active]; Lasix 40 mg Oral tablet daily mb9 [Active]; metoprolol tartrate 25 mg Oral tablet once [Active]; sotalol 80 mg Oral tablet daily [Active]; valsartan 160 mg oral tablet daily [Active]; - PMHx: 16:08 Arthritis; Atrial Fib; CHF; Hypertension; kidney disease; mb9 16:10 Diverticulitis; mb9 - PSHx: 16:08 Appendectomy; Cholecystectomy; Colon; Total abdominal hysterectomy; mb9 - Immunization history:: Adult Immunizations up to date. - Social history:: Smoking status: Patient denies any tobacco usage or history of. ROS: 17:03 Eyes: Negative for injury, pain, redness, and discharge. cp 17:03 Constitutional: Negative for body aches, chills, fever, poor PO intake. 17:03 Cardiovascular: Positive for chest pain, Negative for edema, palpitations. 17:03 Respiratory: Negative for cough, shortness of breath, wheezing. 17:03 Abdomen/GI: Positive for diarrhea, Negative for abdominal pain, vomiting, constipation, black/tarry stool, rectal bleeding. Exam: 16:17 ECG was reviewed by the Attending Physician. Vital Signs: 16:06 BP 160 / 75; Pulse 57; Resp 18; Temp 97.9(O); Pulse Ox 98% on R/A; Weight 72.57 kg; mb9 Height 5 ft. 7 in. ; Pain 7/10; 17:30 BP 185 / 58; Pulse 54; Resp 16 S; Pulse Ox 97% on R/A; Pain 0/10; iw 20:24 BP 180 / 82; Pulse 68; Resp 16; Pulse Ox 100% on R/A; mb9 21:51 BP 181 / 66; Pulse 71; Resp 16; Pulse Ox 97% on R/A; jb4 22:15 BP 176 / 64; Pulse 69; Resp 16; Pulse Ox 96% on R/A; jb4 16:06 Body Mass Index 25.06 (72.57 kg, 170.18 cm) mb9 16:06 Pain Scale: Adult mb9 17:30 Pain Scale: Adult iw MDM: 16:27 Patient medically screened. 20:25 Data reviewed: vital signs, nurses notes, lab test result(s), EKG, radiologic studies, cp CT scan, plain films. 20:25 ED course: message left on voicemail of pcp, DR Gilbert. 04/30 16:43 Order name: Basic Metabolic Panel; Complete Time: 17:46 04/30 17:46 Interpretation: Normal except: K 3.4; GLUC 111; CRE 1.30; GFR 41. 04/30 16:43 Order name: CBC with Diff; Complete Time: 17:46 04/30 17:46 Interpretation: Normal except: RBC 3.73; HGB 11.2; HCT 34.2. 04/30 16:43 Order name: Magnesium; Complete Time: 17:46 04/30 16:43 Order name: NT PRO-BNP; Complete Time: 17:46 04/30 18:47 Interpretation: Abnormal: NT PRO-BNP 639. 04/30 16:43 Order name: Troponin HS; Complete Time: 17:46 04/30 17:26 Order name: SARS-COV-2 RT PCR; Complete Time: 18:46 04/30 18:46 Interpretation: Reviewed. 04/30 17:35 Order name: Urinalysis W/Microscopic; Complete Time: 18:46 04/30 18:46 Interpretation: Normal except: [facility] Turbid; UESTR 250; UWBC 10-20. cp 04/30 18:29 Order name: Urine Culture [facility] 04/30 19:33 Order name: Lactate w/ 2H reflex if indic. 04/30 19:33 Order name: Blood Culture Adult (2) cp 04/30 21:41 Order name: Basic Metabolic Panel [facility] 04/30 21:41 Order name: Basic Metabolic Panel [facility] 04/30 21:41 Order name: CBC with Automated Diff [facility] 04/30 21:41 Order name: CBC with Automated Diff [facility] 04/30 21:41 Order name: NT PRO-BNP [facility] 04/30 21:41 Order name: NT PRO-BNP [facility] 04/30 21:41 Order name: Troponin High Sensitivity [facility] 04/30 21:41 Order name: Troponin High Sensitivity [facility] 04/30 21:41 Order name: Troponin High Sensitivity [facility] 04/30 21:41 Order name: Troponin High Sensitivity [facility] 04/30 16:43 Order name: XRAY Chest (1 view); Complete Time: 18:03 04/30 18:04 Interpretation: Report review. 04/30 17:50 Order name: CT Chest, Abdomen, Pelvis - W/Contrast; Complete Time: 19:28 04/30 16:43 Order name: EKG; Complete Time: 17:11 04/30 21:41 Order name: Regular [facility] 04/30 16:13 Order name: EKG - Nurse/Tech; Complete Time: 16:13 mb9 04/30 16:43 Order name: Cardiac monitoring; Complete Time: 17:26 04/30 16:43 Order name: IV Saline Lock; Complete Time: 17:15 cp 04/30 16:43 Order name: Labs collected and sent; Complete Time: 17:15 cp 04/30 16:43 Order name: O2 Per Protocol; Complete Time: 17:15 cp 04/30 16:43 Order name: O2 Sat Monitoring; Complete Time: 17:15 cp EC:17 Rate is 57 beats/min. Rhythm is regular. AK interval is normal. QRS interval is normal. cp QT interval is normal. Interpreted by me. Reviewed by me. Administered Medications: 20:15 Drug: LevOfloxacin PO 500 mg Route: PO; mb9 20:24 Drug: NS 0.9% IV 500 ml Route: IV; Rate: 500 ml/hr; Site: right antecubital; 9 20:24 Drug: Potassium PO Effervescent Tablet 25 mEq Route: PO; mb9 22:00 Drug: LORazepam PO 0.5 mg Route: PO; jb4 Disposition Summary: 04/30/23 20:23 Hospitalization Ordered Hospitalization Status: Inpatient Admission cp Provider: Jadon Gilbert cp Location: Telemetry/MedSur (Inpatient) cp Condition: Stable cp Problem: new cp Symptoms: have improved cp Bed/Room Type: Standard cp Room Assignment: 223(04/30/23 21:42) mw Diagnosis - Pneumonia in diseases classified elsewhere cp - SARS-associated coronavirus as the cause of diseases classified elsewhere cp - Weakness cp - Chest pain, unspecified cp Forms: - Medication Reconciliation Form cp - SBAR form cp Signatures: Dispatcher [employer] EDMS Samira Mauricio RN RN mw Page, Corey, PA PA cp Bg Anguiano RN RN jb4 Danyell South RN RN mb9 Corrections: (The following items were deleted from the chart) 20:52 17:12 SARS-COV-2 Antigen Rapid+I.LAB.BRZ ordered. [facility] EDMS 21:42 20:23 cp kalyan 05/01 22:00 04/30 17:01 The patient presents to the emergency department with nausea, diarrhea, cp that is continuous, cp
[2023-04-30] MEDS ORDERED: ALBUTEROL 2.5 MG/3 ML NEB SOL NEB PRN (21:37)
[2023-04-30] MEDS ORDERED: ONDANSETRON 4 MG/2 ML VIAL IV PRN (21:37)
[2023-04-30] MEDS ORDERED: IPRATROPIUM BROM 0.5MG/2.5ML NEB PRN (21:37)
[2023-04-30] MEDS ORDERED: LORAZEPAM 0.5 MG TABLET ONE (22:05)
[2023-04-30 22:34] VITALS: BMI 24.1
[2023-05-01 04:34] LABS: Absolute Lymphocytes (CBC) 2.1 K/uL (0.7-4.9); Hematocrit 32.6 % (36.0-45.0); Lymphocytes % 31.7 % (15.3-44.8); MCV 92.1 fL (80-100); MPV 8.8 fL (7.6-11.3); RBC Red Blood Cell Count 3.54 M/uL (3.86-4.86)
[2023-05-01 05:12] LABS: Potassium 3.6 mEq/L (3.5-5.1)
[2023-05-01] MEDS: SOTALOL HCL 80 MG TAB PO SCH (05:56)
[2023-05-01] MEDS: METOPROLOL XL 25 MG TAB PO SCH ×2 (05:56→06:00)
[2023-05-01] MEDS ORDERED: ENOXAPARIN 40 MG/0.4 ML SQ SCH (09:00)
[2023-05-01] MEDS ORDERED: NIRMATRELVIR/RITONAVIR TABLET PO SCH (09:00)
[2023-05-01] MEDS: VALSARTAN 160 MG TAB PO SCH (09:52)
[2023-05-01] MEDS: APIXABAN 2.5 MG TABLET PO SCH ×2 (09:53→21:12)
[2023-05-01] MEDS: HYDROCODONE/APAP 5/325 MG TAB PO PRN ×2 (09:53→21:12)
[2023-05-01] MEDS: LAGEVRIO PO SCH ×2 (15:09→21:00)
--- NOTE | 2023-05-01 20:40 | EKG ---
Test Date: 2023-04-30 Test Time: 16:11:50 [place] Blindstitch: LAURITA MEASUREMENT RESULTS: Intervals: Rate: 57 NE: 176 QRSD: 72 QT: 464 QTc: 451 [place]: P: 78 NE: 176 QRS: 7 T: 61 INTERPRETIVE STATEMENTS: Sinus bradycardia Cannot rule out Anterior infarct, age undetermined Abnormal ECG Compared to ECG 09/03/2022 21:02:20 Myocardial infarct finding now present Atrial premature complex(es) no longer present Electronically Signed On 05-01-23 20:37:53 CDT by Luis Díaz
[2023-05-01] MEDS: Levofloxacin500mg IV 500 MG/100 ML BAG IV SCH (21:12)
--- NOTE | 2023-05-01 21:53 | HP ---
Date of Admission: 05/01/2023 Chief Complaint: Diarrhea. History Of Present Illness: This is an 82-year-old female patient came into emergency room with 2-3 days' history of diarrhea. After she was evaluated in the ER, she was admitted to the hospital with acute diverticulitis and COVID-19 infection as well as pneumonia. Patient denies any cough, congestion, shortness of breath. Denies any expectoration. No fever. No chills. Patient lives at home by herself and I have communicated with the granddaughter today who has family's concerns regarding worsening condition of the patient over last 2 months. She is having increasing problem with confusion and hallucinations on a daily basis. Family is concerned about the patient's safety being at home by herself and they are in favor of the patient going into care home facility. Allergies: BENADRYL CAUSING HALLUCINATIONS. Medications: Pelican 5 mg for chronic arthritis pain, amitriptyline 10 mg take 1- 2 tablets at bedtime, Eliquis 2.5 mg 2 times a day. Lumigan and Combigan eyedrops. I am not sure, which eyedrops is she taking currently because this is being managed by her proposal analyst. She is also on cholestyramine powder half a pack mixed in 8 ounces water drinking 2 times a day, famotidine 40 mg daily at bedtime, furosemide 40 mg daily, metoprolol tartrate 25 mg 2 times a day, potassium chloride 10 mEq daily, sotalol 80 mg 2 times a day, valsartan 160 mg daily. Review of Systems: GI: As mentioned above. STRAIGHT CUTTER MACHINE: As mentioned above. All other systems reviewed and negative. Past Medical History: Significant for headache, COVID-19 infection on October 28, 2021, restless legs syndrome, insomnia, allergic rhinitis, hypothyroidism, type 2 diabetes mellitus, hypertension, hyperlipidemia, paroxysmal atrial fibrillation, gastroesophageal reflux disease, diverticulosis, chronic kidney disease, osteoarthritis at multiple sites, anemia, and osteopenia. Past Surgical History: Cataract surgery, tonsillectomy, cholecystectomy, appendectomy, partial colectomy, and hysterectomy. Family History: Father , had lung cancer. Mother , had colon cancer, stroke, and myocardial infarction. Son has glaucoma. Daughter and had depression and migraine. Social History: Negative for smoking and alcohol use. Physical Examination: Vital Signs: This morning, temperature 97.4, pulse 50, respiratory rate 18, blood pressure 123/52, oxygen saturation 97% on room air. Height 5 feet 7 inches, weight 154 pounds. General: Awake, alert, oriented, not in distress. HEENT: Head atraumatic, normocephalic. Conjunctivae nonerythematous. Sclerae white. Mouth, no thrush or edema noted. Ears/Nose, no mass, lesion, discharge noted. Neck: Supple. No JVD, lymph nodes, bruit, thyromegaly noted. Lungs: Presence of some basal rales. Not in any respiratory distress. Heart: Normal heart sounds, no murmur or gallop. Abdomen: Soft, bowel sounds normal. No guarding, rigidity, tenderness, mass, hepatosplenomegaly, distention, or bruit noted. Extremities: No leg edema. No calf tenderness. Skin: No rash, ulcer, cellulitis. Lymphatics: No lymph node enlargement in neck, supraclavicular, infraclavicular region. Neuro: No focal neurological deficit. Chest: Unremarkable. External Genitalia: Deferred. Rectal: Deferred. Laboratory Data: Yesterday, white count 8.1, hemoglobin 11.2, platelets 240. This morning, white count 6.6, hemoglobin 10.8, platelets 203. Yesterday, chemistry showed sodium 140, potassium 3.4, chloride 105, bicarb 31, BUN 17, creatinine 1.30, glucose 111. Magnesium 2.2. ProBNP 639. Troponin 8.1 on the first set, second set troponin was 11, and third set troponin was 11.6. This morning, sodium 140, potassium 3.6, chloride 106, bicarb 30, BUN 19, creatinine 1.28, glucose 106. Urinalysis was normal except 10-20 wbc's. COVID-19 test positive. 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 Impression: 1. COVID-19 infection. 2. Pneumonia. 3. Chronic kidney disease, stage 3b. 4. Hypertension. 5. Paroxysmal atrial fibrillation. 6. Type 2 diabetes mellitus with chronic kidney disease. 7. Iron deficiency anemia. 8. Hyperlipidemia. 9. Insomnia. 10. Gastroesophageal reflux disease. 11. Osteoarthritis, multiple sites. 12. Depression. 13. Hypothyroidism. Plan: We will admit the patient to hospital for further evaluation of this problem. Patient is appropriate for inpatient and is expected to spend 2 midnights in hospital. We will go ahead and treat pneumonia with antibiotic, Levaquin, and we will repeat chest x-ray tomorrow. For COVID-19 infection, we will go ahead and start the patient on molnupiravir and this prescription was sent to outside pharmacy and family has picked up and brought medication to the hospital as this particular medication is not available in the hospital pharmacy. We do have Paxlovid available, but due to drug interaction with her medications that she takes, it is not advisable to use Paxlovid for her. I will repeat chest x-ray tomorrow. Her anticoagulation therapy for atrial fibrillation, which is Eliquis will be continued per order. Diabetes will not require any further intervention. Her overall condition is declining at home with increasing confusion, hallucinations, and her well-being and safety at home is being questioned by family member and they are in favor care home facility placement and I understand and agree with that and I will communicate with the patient regarding this. If the patient agrees, we will plan to go ahead and have Social Service assist us with the placement. For her abnormality noted of the kidney, obviously I will communicate that with family member as well. Unfortunately, she is not a candidate for kind of surgical intervention if this turns out to be kidney cancer, but at this point, followup in few months with ultrasound will be recommended. I will see her tomorrow for followup. MAX/IVETTE Voice ID: [id number] ANGELA
[2023-05-02] MEDS: METOPROLOL XL 25 MG TAB PO SCH (06:00)
[2023-05-02] MEDS: SOTALOL HCL 80 MG TAB PO SCH (06:00)
[2023-05-02] MEDS ORDERED: SOTALOL HCL 80 MG TAB PO ONE (09:00)
[2023-05-02] MEDS: APIXABAN 2.5 MG TABLET PO SCH ×2 (09:22→20:20)
[2023-05-02] MEDS: VALSARTAN 160 MG TAB PO SCH (09:22)
[2023-05-02] MEDS: LAGEVRIO PO SCH ×2 (09:23→21:00)
[2023-05-02] MEDS: HYDROCODONE/APAP 5/325 MG TAB PO PRN ×2 (12:55→20:20)
--- NOTE | 2023-05-02 13:32 | RAD REPORT ---
EXAM DESCRIPTION: Portable AP chest x-ray TECHNIQUE: Portable AP chest x-ray. Comparison: April 30, 2023. CLINICAL HISTORY: PNA, COVID. FINDINGS: Heart size: Heart size is mildly enlarged. Lungs: Small airspace opacity at the right base has become slightly more conspicuous from a focal are a of pneumonia. CT may be helpful for more specific and sensitive evaluation of potential Covid pneum onia if indicated. Pleura: No pleural effusion. No pneumothorax. Mediastinum and dereje: Unremarkable. Musculoskeletal: Unremarkable. Support tubings: None. IMPRESSION: 1. Small but worsening right basilar infiltrate. Electronically signed by: Wilber Loyola MD 05/02/2023 7:51 AM CDT Due to temporary technical issues with the PACS/Fluency reporting system, reports are being signed by the in house radiologists without review as a courtesy to insure prompt reporting. The interpreting radiologist is fully responsible for the content of the report.
--- NOTE | 2023-05-02 17:11 | RAD REPORT ---
EXAM DESCRIPTION: MRI - Abdomen WWo Cont - 05/02/2023 3:14 pm CLINICAL HISTORY: Renal mass COMPARISON: CT abdomen April 30, 2023 TECHNIQUE: Axial and coronal magnetic resonance imaging of the abdomen obtained. 15 cc MultiHance ad ministered intravenously FINDINGS: 11.4 centimeter a predominantly cystic mass extends off of lower pole right kidney. The mass contains multiple septations. Some are thickened. The wall of the mass is mildly thickened. There is enhancement of the wall. Some of the septations enhance. 2.7 centimeter simple cyst extends off of left kidney. Small proteinaceous cyst left kidney. 1.7 centimeter cystic mass extends off posterior mid pole left kidney. There is equivocal enhancement of the wall. A portion of the wall is mildly thickened. No enhancement of the internal portion of th e mass noted IMPRESSION: 11.4 centimeter multi septated cystic mass with a thickened wall right kidney most likel y neoplasm 1.7 centimeter cystic mass left kidney with equivocal enhancement of the wall. This is indeterminate for neoplasm
--- NOTE | 2023-05-02 20:46 | PN ---
Date of Progress Note: 05/02/2023 Subjective: The patient was seen this morning for followup. She was lying in bed in no distress. D enies any abdominal pain, nausea, vomiting. No cough, congestion, shortness of breath. Objective: Vital Signs: Reviewed. HEENT: Unremarkable. Lungs: Clear to auscultation. Heart: Sounds normal. Abdomen: Soft. Bowel sounds normal. No guarding, rigidity, tenderness, distention. Extremities: No leg edema. Impression: 1.COVID-19 infection. 2.Pneumonia. 3.Renal mass. 4.Hypertension. 5.Confusion. 6.Hallucinations. Plan: We will go ahead and continue current antiviral therapy, molnupiravir. We will continue curre nt antibiotic Levaquin for pneumonia. Anticoagulation therapy will be continued. We will go ahead a nd get an MRI done of abdomen and pelvis today with contrast to evaluate renal mass and I did talk to the patient's granddaughter last night and this morning. Family is family is concerned a nd I did communicate with the patient regarding going to senior care facility upon discharge from the hospital and not happy to hear that and she was unsure about that, so I encouraged her to commun icate with her family members today as her son was planning to visit her and granddaughter as well. During the course of day today, granddaughter did call office and informed office staff that the sandy ent has agreed to go to senior care facility, so we will go ahead and request Social Service to h cj make arrangements for senior care facility placement for her. This will be done today, we will follow up on that. MAX/MODL Voice ID: [id number] Report ID: [id number]
[2023-05-02] MEDS: AMITRIPTYLINE 10 MG TAB PO SCH (23:59)
[2023-05-02] MEDS: Levofloxacin500mg IV 500 MG/100 ML BAG IV SCH (23:59)
[2023-05-03] MEDS: HYDROCODONE/APAP 5/325 MG TAB PO PRN (04:42)
[2023-05-03] MEDS: LAGEVRIO PO SCH ×2 (07:56→21:04)
[2023-05-03] MEDS: VALSARTAN 160 MG TAB PO SCH (07:56)
[2023-05-03] MEDS: Mupirocin NASAL 2 APPL/1 GM TUBE NAS SCH ×2 (07:56→22:18)
[2023-05-03] MEDS: Meropenem 1,000 MG in NA CHLORIDE 0.9% 100 ML IV SCH ×2 (07:56→21:04)
[2023-05-03] MEDS: APIXABAN 2.5 MG TABLET PO SCH ×2 (07:56→21:04)
[2023-05-03] MEDS: ACETAMINOPHEN 500 MG TAB PO PRN (13:52)
[2023-05-03] MEDS: AMITRIPTYLINE 10 MG TAB PO SCH (21:04)
[2023-05-03] MEDS: HYDROCODONE/APAP 5/325 MG TAB PO SCH (21:04)
[2023-05-04] MEDS: LAGEVRIO PO SCH ×2 (08:14→21:49)
[2023-05-04] MEDS: APIXABAN 2.5 MG TABLET PO SCH ×2 (08:14→20:02)
[2023-05-04] MEDS: Meropenem 1,000 MG in NA CHLORIDE 0.9% 100 ML IV SCH ×2 (08:14→21:49)
[2023-05-04] MEDS: VALSARTAN 160 MG TAB PO SCH (08:14)
[2023-05-04] MEDS: Mupirocin NASAL 2 APPL/1 GM TUBE NAS SCH ×2 (08:15→20:03)
[2023-05-04] MEDS: HYDROCODONE/APAP 5/325 MG TAB PO PRN (08:19)
[2023-05-04] MEDS ORDERED: AMLODIPINE 5 MG TAB PO ONE (09:29)
[2023-05-04] MEDS: ACETAMINOPHEN 500 MG TAB PO PRN (13:41)
--- NOTE | 2023-05-04 15:51 | PN ---
Date of Progress Note: 05/03/2023 Subjective: The patient was seen this morning for followup. She was lying in bed, not in any distre ss. Denies any chest pain, shortness of breath, nausea, vomiting. Objective: Vital Signs: Reviewed. HEENT: Unremarkable. Lungs: Clear to auscultation, not in any respiratory distress. Heart: Sounds normal. Abdomen: Soft. Bowel sounds normal. No guarding, rigidity, tenderness, distention. Extremities: No leg edema. Laboratory Data: Urine culture is growing E coli, Proteus, ESBL. Her MRI of abdomen shows 11.4 cm m ulti-septated cystic mass with a thickened wall in the right kidney, most likely neoplasm, and there is a 1.7 cm cystic mass in left kidney with equivocal enhancement of the wall, and this is indetermin ate for neoplasm. Impression: 1.Pneumonia. 2.COVID-19 infection. 3.Urinary tract infection. 4.Bilateral kidney mass, rule out kidney cancer. 5.Hypertension. Plan: We will go ahead and continue current antiviral therapy for COVID-19 infection. We will disco polina Kate that she was getting for urinary tract infection and start patient on meropenem 1000 mg IV every 12 hours and PICC line was ordered. I did discuss details with the patient regarding her MRI results and urine culture results requiring IV meropenem and PICC line placement. After I talke d to her yesterday, the patient's family communicated with her regarding longterm facility [facility], and patient is willing to go to such facility. So Social Service was consulted and Social lalo has initiated the referral process. Once we have PICC line in place and longterm facili ty arrangements completed, plan is to discharge her to go to such facility. I did call the patient's granddaughter late evening today and discuss all this MRI results with her as well as plan of treatm ent with IV antibiotics with meropenem. If the patient is able to come back home from skilled [facility] facility, then patient to follow up at my office next month, and we will start outpatient referral process for her to go to [facility] for further evaluation of this kidney neoplasm. If she ends up staying in the longterm facility, then granddaughter was told that she will need to have physi alexia at the longterm facility help refer her to go to [facility]. I have also asked the sandy ent's granddaughter to continuous pickling line pickler helper a copy of MRI films and CAT scan films from the hospital. She will ta ke those films with her when patient goes to [facility]. MAX/IVETTE Voice ID: [id number] Report ID: [id number]
[2023-05-04] MEDS: AMITRIPTYLINE 10 MG TAB PO SCH (20:02)
[2023-05-04] MEDS: HYDROCODONE/APAP 5/325 MG TAB PO SCH (20:03)
--- NOTE | 2023-05-04 21:33 | RAD REPORT ---
EXAM DESCRIPTION: RAD - Chest Single View - 05/04/2023 9:28 pm CLINICAL HISTORY: left PICC line Insertion COMPARISON: Chest Single View dated 05/02/2023; Chest Single View dated 04/30/2023; Chest Single View dated 09/03/2022; Chest Single View dated 04/24/2022 FINDINGS: Portable chest was obtained following placement of a left upper extremity PICC line. The c atheter tip projects over the SVC.
[2023-05-05] MEDS: HYDROCODONE/APAP 5/325 MG TAB PO PRN ×2 (02:01→15:19)
[2023-05-05] MEDS: Mupirocin NASAL 2 APPL/1 GM TUBE NAS SCH ×2 (09:00→19:28)
[2023-05-05] MEDS: LAGEVRIO PO SCH ×2 (09:00→19:29)
[2023-05-05] MEDS: VALSARTAN 160 MG TAB PO SCH (09:21)
[2023-05-05] MEDS: APIXABAN 2.5 MG TABLET PO SCH ×2 (09:22→19:27)
[2023-05-05] MEDS: AMLODIPINE 5 MG TAB PO SCH (09:22)
[2023-05-05] MEDS: Meropenem 1,000 MG in NA CHLORIDE 0.9% 100 ML IV SCH ×2 (09:22→19:27)
[2023-05-05] MEDS: POTASSIUM CL SA 10 MEQ TAB PO SCH (10:02)
[2023-05-05] MEDS: FUROSEMIDE 40 MG TABLET PO SCH (10:02)
[2023-05-05] MEDS: METOPROLOL TAR 25 MG TAB PO SCH ×2 (10:03→19:27)
[2023-05-05 10:22] LABS: Absolute Lymphocytes (CBC) 1.5 K/uL (0.7-4.9); Hematocrit 33.2 % (36.0-45.0); Lymphocytes % 24.4 % (15.3-44.8); MCV 92.4 fL (80-100); MPV 8.2 fL (7.6-11.3)
[2023-05-05 10:38] LABS: Albumin 2.9 g/dL (3.4-5.0); Bilirubin Total 0.8 mg/dL (0.2-1.0); Magnesium 2.4 mg/dL (1.6-2.4); Potassium 3.9 mEq/L (3.5-5.1); Protein, Total 6.1 g/dL (6.4-8.2)
[2023-05-05] MEDS ORDERED: MAGNESIUM HYDROXIDE 8% 30 ML PO ONE (10:40)
--- NOTE | 2023-05-05 12:09 | PN ---
Date of Progress Note: 05/04/2023 Subjective: The patient was seen this morning for followup. She was lying in bed, not in any distre ss. Denies any complaints. No chest pain. No shortness of breath. No abdominal pain, nausea, vomi ting. Physical Examination: Vital Signs: Reviewed. Temperature 97.4, pulse 57, blood pressure 184/75. HEENT: Unremarkable. Lungs: Clear to auscultation. Heart: Sounds normal. Abdomen: Soft. Bowel sounds normal. No guarding, rigidity, tenderness, distention. Extremities: No leg edema. Laboratory Data: Urine culture results reviewed. The patient is growing Proteus, which is ESBL and also growing E coli. Impression: 1.COVID-19 infection. 2.Pneumonia. 3.Urinary tract infection, Proteus, ESBL. 4.Hypertension. Plan: We will go ahead and start amlodipine 5 mg daily starting first dose now and continue other cu rrent medications. Continue current antibiotic which is meropenem now for this urinary tract infecti on and that should also help with her pneumonia problem. PICC line was ordered. We will go ahead an d continue antiviral therapy for COVID infection. I did call the patient's granddaughter and discuss ed all the details with her. Social Service is assisting with jail facility placement. MAX/MODL Voice ID: [id number] Report ID: [id number]
--- NOTE | 2023-05-05 12:12 | PN ---
Date of Progress Note: 05/05/2023 Subjective: The patient was seen this morning for followup. No new complaints or problems reported. She was lying in bed, not in any distress. Denies any chest pain, shortness of breath. No abdomin al pain, nausea, vomiting, but complaining of some constipation and reports that she has not had a truman wel movement since she came into the hospital. Objective: Vital Signs: Reviewed. HEENT: Unremarkable. Lungs: Clear to auscultation. Heart: Sounds normal. Abdomen: Soft. Bowel sounds normal. No guarding, rigidity, tenderness, distention. Extremities: No leg edema, and the patient has a PICC line in place in the left arm. Impression: 1.Pneumonia. 2.COVID-19 infection. 3.Urinary tract infection. 4.Constipation. 5.Hypertension. Plan: The patient's blood pressure this morning was 183/82. We will continue current antihypertensi ve medication, restart her metoprolol 25 mg b.i.d., furosemide and potassium as she takes at home. W e will continue current antiviral antibiotic therapy. Milk of magnesia was ordered and I will see he r tomorrow for followup. MAX/MODL Voice ID: [id number] Report ID: [id number]
[2023-05-05] MEDS: AMITRIPTYLINE 10 MG TAB PO SCH (19:26)
[2023-05-05] MEDS: HYDROCODONE/APAP 5/325 MG TAB PO SCH (19:27)
[2023-05-06] MEDS: HYDROCODONE/APAP 5/325 MG TAB PO PRN ×2 (00:07→12:58)
--- NOTE | 2023-05-06 07:19 | RAD REPORT ---
EXAM DESCRIPTION: RAD - Chest Single View - 05/06/2023 6:55 am CLINICAL HISTORY: pneumonia COMPARISON: Chest Single View dated 05/04/2023; Chest Single View dated 05/02/2023; Chest Single View dated 04/30/2023; Chest Single View dated 09/03/2022; Chest Abdomen Pelvis W Cont dated 04/30/2023 FINDINGS: Lines: Left subclavian approach PICC with tip overlying the SVC. Lungs: Mild right middle lobe opacities are unchanged. Bilateral nodularity is similar. Pleural: No significant pleural effusions or pneumothorax. Cardiac: The heart size is within normal limits. Mediastinum: Within normal limits. Bones: No acute fractures. Other: None IMPRESSION: No significant change compared 05/04/2023. Right middle lobe opacities and mild scattere d bilateral nodularity as was seen on the CT from 04/30/2023.
[2023-05-06] MEDS: AMLODIPINE 5 MG TAB PO SCH (09:35)
[2023-05-06] MEDS: DOCUSATE NA/SENNA CONC 1 TAB PO SCH (09:35)
[2023-05-06] MEDS: POTASSIUM CL SA 10 MEQ TAB PO SCH (09:35)
[2023-05-06] MEDS: Mupirocin NASAL 2 APPL/1 GM TUBE NAS SCH ×2 (09:35→20:33)
[2023-05-06] MEDS: FUROSEMIDE 40 MG TABLET PO SCH (09:35)
[2023-05-06] MEDS: APIXABAN 2.5 MG TABLET PO SCH ×2 (09:36→20:29)
[2023-05-06] MEDS: METOPROLOL TAR 25 MG TAB PO SCH ×2 (09:36→20:33)
[2023-05-06] MEDS: VALSARTAN 160 MG TAB PO SCH (09:36)
[2023-05-06] MEDS: Meropenem 1,000 MG in NA CHLORIDE 0.9% 100 ML IV SCH ×2 (09:36→20:30)
--- NOTE | 2023-05-06 14:56 | PN ---
Date of Progress Note: 05/06/2023 Subjective: The patient was seen this morning for followup. No new complaints or problems reported by the patient. She was lying in bed, has ongoing complaints of her arthritis pain in her knee, but no new complaints or problems reported. No chest pain. No shortness of breath. Objective: Vital Signs: Reviewed. HEENT: Unremarkable. Lungs: Clear to auscultation. Heart: Sounds normal. Abdomen: Soft. Bowel sounds normal. No guarding, rigidity, tenderness, distention. Extremities: No leg edema. Impression: 1. Pneumonia. 2. COVID-19 infection. 3. Urinary tract infection, Proteus, ESBL. 4. Hypertension. Plan: We will go ahead and continue current antihypertensive medication, continue current antibiotic which is meropenem, and continue antiviral therapy for COVID infection. I will see her tomorrow for followup, possible discharge tomorrow once social Service is able to make arrangements for [facility] facility placement. Discharge medications: [place] 5 mg four times a day as needed for chronic arthritis pain, amitriptyline 10 mg take 1-2 tablets at bedtime, Eliquis 2.5 mg 2 times a day. Lumigan and Combigan eyedrops. 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 She is also on cholestyramine powder half a pack mixed in 8 ounces water drinking 2 times a day, famotidine 40 mg daily at bedtime, furosemide 40 mg daily, metoprolol tartrate 25 mg 2 times a day, potassium chloride 10 mEq daily, sotalol 80 mg 2 times a day, valsartan 160 mg daily. Meropenem 1000 mg IV every 12 hours for one week. Flush PICC line per protocol, change PICC line dressing per protocol, remove PICC line after one week of IV antibiotic therapy completed. Senokot-S, 2 tablet by mouth daily. Consult PT and OT. MAX/MODL Voice ID: [id number] Report ID: [id number]
[2023-05-06] MEDS ORDERED: MAGNESIUM HYDROXIDE 8% 30 ML PO ONE (15:39)
[2023-05-06] MEDS ORDERED: BISACODYL 10 MG RECTAL SUPP PR ONE (15:40)
[2023-05-06] MEDS: HYDROCODONE/APAP 5/325 MG TAB PO SCH (20:29)
[2023-05-06] MEDS: AMITRIPTYLINE 10 MG TAB PO SCH (20:39)
[2023-05-07] MEDS: HYDROCODONE/APAP 5/325 MG TAB PO PRN ×3 (00:01→17:32)
[2023-05-07] MEDS: Mupirocin NASAL 2 APPL/1 GM TUBE NAS SCH ×2 (09:25→21:03)
[2023-05-07] MEDS: Meropenem 1,000 MG in NA CHLORIDE 0.9% 100 ML IV SCH ×2 (10:13→21:01)
[2023-05-07] MEDS: METOPROLOL TAR 25 MG TAB PO SCH ×2 (10:13→21:02)
[2023-05-07] MEDS: APIXABAN 2.5 MG TABLET PO SCH ×2 (10:14→21:01)
[2023-05-07] MEDS: AMLODIPINE 5 MG TAB PO SCH (10:14)
[2023-05-07] MEDS: FUROSEMIDE 40 MG TABLET PO SCH (10:14)
[2023-05-07] MEDS: POTASSIUM CL SA 10 MEQ TAB PO SCH (10:14)
[2023-05-07] MEDS: DOCUSATE NA/SENNA CONC 1 TAB PO SCH (10:14)
[2023-05-07] MEDS: VALSARTAN 160 MG TAB PO SCH (10:14)
[2023-05-07] MEDS: HYDROCODONE/APAP 5/325 MG TAB PO SCH (21:02)
[2023-05-07] MEDS: AMITRIPTYLINE 10 MG TAB PO SCH (21:02)
--- NOTE | 2023-05-08 07:54 | PN ---
Date of Progress Note: 05/07/2023 Subjective: The patient was seen this morning for followup. She was lying in bed, not in any distre ss. Denies any new complaints. No chest pain, shortness of breath. Objective: Vital Signs: Reviewed. HEENT: Unremarkable. Lungs: Clear to auscultation. Heart: Sounds normal. Abdomen: Soft. Bowel sounds normal. No guarding, rigidity, tenderness, distention. Extremities: No leg edema. Impression: 1.Pneumonia. 2.COVID-19 infection. 3.Urinary tract infection. 4.Osteoarthritis, multiple sites. 5.Hypertension. Plan: We will go ahead and continue current medication, continue current antibiotic. Social Service is assisting the patient and family with assisted facility placement. As soon as that is arr anged, the patient will be discharged as she is medically stable for discharge. MAX/MODL Voice ID: [id number] Report ID: [id number]
[2023-05-08] MEDS: DOCUSATE NA/SENNA CONC 1 TAB PO SCH (09:11)
[2023-05-08] MEDS: POTASSIUM CL SA 10 MEQ TAB PO SCH (09:11)
[2023-05-08] MEDS: APIXABAN 2.5 MG TABLET PO SCH ×2 (09:11→20:05)
[2023-05-08] MEDS: METOPROLOL TAR 25 MG TAB PO SCH ×2 (09:11→20:05)
[2023-05-08] MEDS: VALSARTAN 160 MG TAB PO SCH (09:12)
[2023-05-08] MEDS: FUROSEMIDE 40 MG TABLET PO SCH (09:12)
[2023-05-08] MEDS: AMLODIPINE 5 MG TAB PO SCH (09:12)
[2023-05-08] MEDS: Meropenem 1,000 MG in NA CHLORIDE 0.9% 100 ML IV SCH ×2 (09:13→20:06)
[2023-05-08] MEDS: HYDROCODONE/APAP 5/325 MG TAB PO PRN ×2 (10:03→16:05)
[2023-05-08] MEDS: HYDROCODONE/APAP 5/325 MG TAB PO SCH (20:05)
[2023-05-08] MEDS: AMITRIPTYLINE 10 MG TAB PO SCH (20:06)
[2023-05-09 05:04] VITALS: O2SAT 96
--- NOTE | 2023-05-09 08:08 | PN ---
Date of Progress Note: 05/08/2023 Subjective: The patient was seen this morning for followup. No new complaints or problems reported by the patient. Lying in bed, not in any distress. Denies any chest pain, shortness of breath, naus ea, vomiting. No constipation. Objective: Vital Signs: Reviewed. HEENT: Unremarkable. Lungs: Clear to auscultation. Heart: Sounds normal. Abdomen: Soft. Bowel sounds normal. No guarding, rigidity, tenderness, distention. Extremities: No leg edema. Impression: 1.Pneumonia. 2.COVID-19 infection. 3.Urinary tract infection. 4.Hypertension. Plan: We will go ahead and continue current medication, continue current antibiotic. Social Service is working on [facility] placement for the patient. Once that is completed, plan is to discharge her. Medically, she is stable for discharge. MAX/MODL Voice ID: [id number] Report ID: [id number]
[2023-05-09] MEDS: METOPROLOL TAR 25 MG TAB PO SCH (08:55)
[2023-05-09] MEDS: AMLODIPINE 5 MG TAB PO SCH (08:55)
[2023-05-09] MEDS: APIXABAN 2.5 MG TABLET PO SCH (08:56)
[2023-05-09] MEDS: FUROSEMIDE 40 MG TABLET PO SCH (08:56)
[2023-05-09] MEDS: VALSARTAN 160 MG TAB PO SCH (08:56)
[2023-05-09] MEDS: POTASSIUM CL SA 10 MEQ TAB PO SCH (08:56)
[2023-05-09] MEDS: DOCUSATE NA/SENNA CONC 1 TAB PO SCH (08:56)
[2023-05-09] MEDS: Meropenem 1,000 MG in NA CHLORIDE 0.9% 100 ML IV SCH (08:57)
[2023-05-09] MEDS: HYDROCODONE/APAP 5/325 MG TAB PO PRN (12:25)
[2023-05-09] MEDS ORDERED: ALBUTEROL 2.5 MG/3 ML NEB SOL NEB PRN (17:00)
[2023-05-09] MEDS ORDERED: IPRATROPIUM BROM 0.5MG/2.5ML NEB PRN (17:00)
[2023-05-09 17:30] VITALS: BP 111/56; TEMP 97.6
== END 2023-05-09 18:36 | DRG 177 ==
LOC: ER 15:53 → 2ND 21:35 → 4TH 05-02 17:49
PROVIDERS: ADMIT Internal Medicine; ATTEND Internal Medicine
PROC: 02HV33Z Insertion of Infusion Device into Superior Vena Cava, Percutaneous Approach (ICD-10-PCS; principal; 2023-05-04)
DX: U07.1 COVID-19 (principal); J12.82 Pneumonia due to coronavirus disease 2019; R44.3 Hallucinations, unspecified; Z16.12 Extended spectrum beta lactamase (ESBL) resistance; N39.0 Urinary tract infection, site not specified; Z88.2 Allergy status to sulfonamides; Z79.899 Other long term (current) drug therapy; I12.9 Hypertensive chronic kidney disease with stage 1 through stage 4 chronic kidney disease, or unspecified chronic kidney disease; Z90.710 Acquired absence of both cervix and uterus; Z90.49 Acquired absence of other specified parts of digestive tract; Z60.2 Problems related to living alone; Z88.8 Allergy status to other drugs, medicaments and biological substances; Z86.16 Personal history of COVID-19; G25.81 Restless legs syndrome; K21.9 Gastro-esophageal reflux disease without esophagitis; E11.22 Type 2 diabetes mellitus with diabetic chronic kidney disease; E78.5 Hyperlipidemia, unspecified; I48.0 Paroxysmal atrial fibrillation; E03.9 Hypothyroidism, unspecified; M19.09 Primary osteoarthritis, other specified site; N18.32 Chronic kidney disease, stage 3b; D50.9 Iron deficiency anemia, unspecified; G47.00 Insomnia, unspecified; F32.A Depression, unspecified; N28.9 Disorder of kidney and ureter, unspecified; R41.0 Disorientation, unspecified; B96.20 Unspecified Escherichia coli [E. coli] as the cause of diseases classified elsewhere; K59.00 Constipation, unspecified; B96.4 Proteus (mirabilis) (morganii) as the cause of diseases classified elsewhere
CPT/HCPCS: 36415; 36569; 71045; 71260; 74177; 74183; 80048; 80053; 81001; 82947; 83605; 83735; 83880; 84484; 85025; 87040; 87077; 87086; 87088; 87186; 87635; 93005; 94760; 97110; 97116; 97161; 97530; 99285; A9577; J2185; J2405; J7040; Q9967